=== PATIENT | male | born 1955 | race Caucasian/White ===

== ENCOUNTER 2025-01-01 10:36 | Outpatient (REF) | payer MEDICARE, MEDICAID, SELFPAY ==
--- OUTSIDE RECORDS SUMMARY | 2025-01-01 14:53 | XMS_ITS | Data Portability ---
Author Organization [facility], Main Office Address [address], [address] [place] [address] Care Team Providers Care [employer] Operator Name Role Phone [facility] OTHER HARLEY ALEXANDER Primary Care Provider Assessment No assessment recorded. Plan of Treatment Reminders Order Date Submit Date Provider Last Modified By Organization Details Last Modified Time Details Appointments None record ed. Lab None record ed. Referral None record ed. Procedures None record ed. Surgeries None record ed. Imaging None record ed. Medication Orders None record ed. Patient TargetsNo targets recorded. Patient InstructionsNo instructions recorded. Reason for Referral None Reported. Problems Name Problem SNOMED Code Status Onset Date Resolution Date Notes Provider Name and Address Organization Details Recorded Time Operative procedure on digestive system Active 2024 Not Available [facility] 5 10:08:03 Dysphagia 26914752 Active 2024 Not Available [facility] 5 10:08:04 Muscle weakness 43549223 Active 2024 Not Available [facility] 5 10:08:04 Unsteady when standing 133769487 Active 2024 Not Available [facility] 5 10:08:05 Difficulty walking 447904650 Active 2024 Not Available [facility] 5 10:08:05 Bile peritonitis 55995350 Active 2024 Not Available [facility] 5 10:08:05 Abdominal pain 21762861 Active 2024 Not Available [facility] 5 10:08:06 Clostridium difficile colitis 353379346 Active 2024 Not Available [facility] 5 10:08:06 Sepsis 77229263 Active 2024 Not Available [facility] 5 10:08:07 Ureteric stone 74345824 Active 2024 Not Available [facility] 5 10:08:07 Disorder of peritoneum 62822130 Active 2024 Not Available [facility] 5 10:08:07 Acute hypoxemic respiratory failure 335399484 Active 2024 Not Available [facility] 5 10:08:08 Acute kidney injury 88993864 Active 2024 Not Available [facility] 5 10:08:08 Pneumoperiton eum 30265299 Active 2024 NIKI HERRERA [address], [address], [place], [address] , [facility] 5 07:29:47 Hernia of anterior abdominal wall 703437536 Active 2024 NIKI HERRERA [address], [address], [place], [address] , [facility] 5 07:30:14 Perforation of intestine 62131120 Active 2024 NIKI HERRERA [address], [address], [place], [address] , [facility] 5 07:30:52 Clostridioide s difficile infection 361531288 Active 2024 NIKI HERRERA [address], [address], [place], [address] , [facility] 5 07:31:34 Bacteremia 1609574 Active [address], [place], [address] , [facility] 5 07:31:42 Venous thrombosis 370818143 Active 2024 NIKI HERRERA [address], [address], [place], [address] , [facility] 5 07:31:50 Deep venous thrombosis of lower extremity 846286280 Active 2024 NIKI HERRERA [address], [address], [place], [address] , [facility] 5 07:32:06 Small bowel obstruction 726479106 Active 2024 NIKI HERRERA [address], [address], [place], [address] , [facility] 5 07:32:42 Essential hypertension 55813303 Active 2024 NIKI HERRERA [address], [address], [place], [address] , [facility] 5 07:43:41 Constipation 33379065 Active 2024 NIKI HERRERA [address], [address], [place], [address] , [facility] 5 07:44:05 Problem Notes None recorded. Medical Equipment None Reported. Allergies No known drug allergies Medications Name Sig Start Date Stop Date Status Note LastModified by Organization Details LastModified Time Miralax 17 gram/dose oral powder Give 1 packet by mouth every 24 hours as needed for constipatio n 2024 active Not Available Not Available Not Avai lable acetaminophe n 325 mg tablet Give 2 tablet by mouth every 6 hours as needed for Mild Pain Do not exceed 3 grams in 24 hours.Total 650 mg AND Give 2 tablet by mouth every 6 hours as needed for Elevated Temperature > 101 Do not exceed 3 grams in 24 hours.Total 650mg 2024 active Not Available Not Available Not Avai lable vancomycin 125 mg capsule Give 1 capsule by mouth every 6 hours for c-diff discontinue order when vancomycin oral suspension arrives from pharmacy. 2024 active Not Available Not Available Not Avai lable DSS 100 mg capsule Give 1 tablet by mouth every 12 hours as needed for constipatio n 2024 active Not Available Not Available Not Avai lable lisinopril 10 mg tablet Give 1 tablet by mouth one time a day for HTN 2024 active Not Available Not Available Not Avai lable Laxative (sennosides) 8.6 mg tablet Give 1 tablet by mouth every 24 hours as needed for Constipatio n 2024 active Not Available Not Available Not Avai lable sodium phosphates 19 gram-7 gram/197 mL enema Insert 1 unit rectally every 24 hours as needed for Constipatio n Use only if Bisacodyl Suppository is ineffective 2024 active Not Available Not Available Not Avai lable Midol (naproxen) 220 mg tablet Give 1 tablet by mouth every 12 hours for Pain Take with food. Administer with full glass of water. 2024 active Not Available Not Available Not Avai lable Ibupak 600 mg oral kit Give 1 tablet by mouth three times a day for pain 2024 active Not Available Not Available Not Avai lable OneLAX Bisacodyl 10 mg rectal suppository Insert 1 suppository rectally every 24 hours as needed for constipatio n Use if Senna is Ineffective 2024 active Not Available Not Available Not Avai lable Vitals Date Recorded Body temperature Heart rate Respiratory rate Body weight Systolic And Diastolic Provider Name and Address Organization Details Last Updated DateTime 5 97.3 [degF] 95 /min 14 /min 32901.3 7 g 143/83 mm[Hg] Ortega Delatorre MD [address], [place], [address], [facility] 5 10:43:20 Date Recorded Systolic And Diastolic Provider Name and Address Organization Details Last Updated DateTime 03/23/2024 130/68 mm[Hg] Ortega Delatorre MD [address] , [address], [place], [address], [facility] 03/23/2024 11:34:03 Date Recorded Heart rate Systolic And Diastolic Provider Name and Address Organization Details Last Updated DateTime 03/28/2024 88 /min 114/68 mm[Hg] TAVARES GIL [address] , [address], [place], [address], [facility] 03/28/2024 20:16:33 Social History Question Answer Notes LastModified by Organizat ion Details LastModified Time Tobacco Smoking Status Unknown If Ever Smoked Ortega Delatorre MD [address], [address], [place], [address], [facility] [employer] 03/19/2024 11:04:34 Do You Have An Advance Directive? [email or web address] Information not available 03/19/2024 What Is Your Code Status? Full Code [email or web address] Information not available 03/19/2024 Sex: Unknown Functional Status None recorded. Mental Status None recorded. Family History Nothing Reported Notes:N/C Medical History No medical history recorded. Past Encounters Encounter ID Performer Location Encounter Start Date Encounter Closed Date Diagnosis/Indication Diagnosis SNOMED-CT Code Diagnosis ICD10 Code Diagnosis IMO Codes Diagnosis Note [id number] JIA DAVALOS NP-C [facility] [address] [place] [address] 03/17/2024 07:19:47 03/19/2024 16:20:35 Hernia of anterior abdominal wall 631924763 K43.9 underwent ex-lap, NEW, reduction of ventral hernias, primary repair of D1 perforatio n with omental buttress, and EMILY drain placement (now removed)mo nitor and see above plansurgic al f/up Pneumoperitoneum 4399563 6 K66.8 w/ free air in abdunderwe nt ex-lap, NEW, reduction of ventral hernias, primary repair of D1 perforatio n with omental buttress, and EMILY drain placement (now removed)mo nitor painon tylenol, ibuprofen and naproxen for pain controlmon itor bowelsmoni tor surgical sitesuture s can be removed in 1 weekdysaph ia 3 diet with thin liquids = monitor tolerance to po intake PT OT eval and treat = pt should avoid strainingc bc on admit and weeklyf/up with trauma surgery at [facility] on 03/29 at 1100 Perforatio n of intestine 64865305 K63.1 bowel leak after surgeryreq uiring second surgery and NG/NJ tube (now removed)mo nitor cbc and ss of infections urgical f/up Bacteremia 4568040 R78.8 1 dt perforatio ncompleted rocephen and flagylmoni tor cbc and ss of infection Clostridio ides difficile infection 984938552 A04.72 dc summary note states pt completed all antbxdc med list with po vanco listed and no end datecontin ue vanco po 125 mg q6h for now, will look into end datemonito r for loose stools Deep venou s thrombosis of lower extremity 372189589 I82.409 hep gtt, now on lovenoxmon itor bleeding Venous thrombosis 700752 003 I82.90 hep gtt, now on lovenoxmon itor bleeding Small sahara l obstruction 833944172 K56.609 monitor bowel function Constipation 04762057 K5 9.00 at risk dt multiple bowel surgeriesm onitor bowel functionco ntinue bowel regimenadd miralax daily Essential hypertension 18316105 I10 carrying dxlisinopr il 10 mg dailymonit or bp and labs [id number] Ortega Delatorre MD [facility] [address] [place] [address] 03/19/2024 10:42:39 03/21/2024 08:27:28 Pneumoperitoneum 41141233 K66.8 see HPIcomplic ated hospitaliz ation with recurrent repeat surgical interventi onsfollow recs and update surgery with concernsmo nitor need to repeat imaging Hernia of anterior abdominal wall 525776459 K43.9 see HPI and abovenow s/p repeat repairmoni tor site Perforatio n of intestine 72832107 K63.1 see HPI with repeat surgical interventi onsmonitor vital and repeat cbcupdate surgery with concerns Bacteremia 3461158 R78.8 1 Sepsis covered with rocephin and flagyl, then developed c diff colitis started on vanco PO now completed per notehoweve r - Vanco PO in d/c med list, continued at this timefollow cbc Clostridio ides difficile infection 664030390 A04.72 discharged on PO vancoconti nued at this timereques t info for stop date Deep venou s thrombosis of lower extremity 702499857 I82.409 hep gtt, now on lovenoxmon itor bleeding Venous thrombosis 055319 003 I82.491 UL positive for LLE peroneal vein and RUE subclavian /axillary DVT covered with lovenox Constipation 48201300 K5 9.09 bowel protocolmo nitor for effect and need to titrate Essential hypertension 05534014 I10 lisinopril 10 mg qdmonitor bp and need to titrate [id number] [place] [address] 03/23/2024 11:33:18 03/26/2024 15:16:39 Acute retention of urine 491587631 R33.8 voiding trial at facility 03/26 in [facility] protocoldi scussed with nursing Pneumoperitoneum 3148720 6 K66.8 see HPIcomplic ated hospitaliz ation with recurrent repeat surgical interventi onsupdated surgery on concern for infection at incision sitefollow recs Clostridio ides difficile infection 423299495 A04.72 discharged on PO vancoconti nued on arrivalreq uest ID note for stop datewill empiricall y stop next week if remains symptomati c [id number] JIA DAVALOS, [place] [address] 03/27/2024 14:34:38 03/28/2024 15:48:38 Clostridioides difficile infection 153896051 A04.72 continue vancowait for ID recs for stop datechange all bowel meds to prn instead of scheduled Constipation 74675738 K5 9.09 at risk dt multiple bowel surgeriesm onitor bowel functionno w with diarrheawi ll change all bowel meds to prn Retention of urine 36976 4002 R33.9 started voiding trial on mondoing wellcontin ue to bladder scan per nursing protocol [id number] [place] [address] 03/28/2024 13:54:31 03/29/2024 15:16:54 Surgical incision wound of skin 6540786261 00 R23.8 s/p EMILY drains pt states that scabb fell off today and the site started oozing.new order to cleanse with NS and apply zinc if available around incision site to protect skin from maceration . cover incision with pressure dressing q shift and prnpatient has a f/u with surgery on 03/29/24ntaylor sing to update provider with worsening changes Health Concerns Section Related Observation LastModified by Organization Detai ls LastModified Time None Recorded Concern Status LastModified by Organization Details LastModified Time None Recorded Advance Directives Directive N: Payers Insurance Date Sequence Insurance Name Policy Number Policy Myles Covered Member ID Myles Member ID Guarantor Name 03/19/2024 1 MEDICARE [place]: [employer] Elliot Coombs [id number] Elliot Coombs 03/19/2024 1 *SELF PAY* Jarrett Coombs Notes Date Note Type Note Provider Name and Address Organization Details Recorded Time 03/17/2024 text/html Pt is a 68 yo male being seen for initial intake visit. Pt had a very long and complicated hospital course from 01/25/24-03/16/24 at [facility]. He had multiple trips to the OR and an ICU stay. Initially presented for abd pain and was found to have pneumoperitoneum thus pt underwent ex-lap, NEW, reduction of ventral hernias, primary repair of D1 perforation with omental buttress, and EMILY drain placement. Post op complicated by a leak and he underwent surgery again for perforation and placement of NG/NJ tube. He was bacteremic requiring CTX/Flagyl, C diff requiring PO vancomycin, now off all antibiotics as of 03/09. Admission further complicated by a LLE thrombus and a DESMOND DVT, transitioned from a hep gtt to therapeutic lovenox. Patient seen today. He is laying in bed. He denies any pain and says he has been pain free. He reports last BM was yesterday but this morning he was on bed avilez and struggling to have a BM. He is passing gas. Nursing made aware to give bowel reg and monitor. He reports living at home with 3 other brothers. At baseline he was walking independently and is now using a cane. PMH laparotomy with L inguinal hernia repair (2007) with subsequent SBO 2/2 incarcerated incisional hernia s/p laparotomy, SBR with primary anastomosis, and primary incisional hernia repair (2015) c/b recurrence of large ventral hernia. JIA DAVALOS NP-C [address], [address], [place], [address], [facility] [employer] 03/17/2024 08:00:08 03/19/2024 text/html Patient is a 68 yo male with hx of inguinal hernia, incarcerated hernia and recurrence of large ventral hernia, Admit from hospital presenting after abd pain. Imaging positive for pneumoperitoneum. Eval by surgery and underwent exploratory lap with hernia reduction and repair of perforation. Post op vital unstable taken back to OR with concern for leak then underwent redo of primary repair. Developed sepsis and need for further intervention with abd washout and stump oversew of site. Sepsis covered with rocephin and flagyl, then developed c diff colitis started on vanco PO now completed. UL positive for LLE peroneal vein and RUE subclavian/axillary DVT covered with lovenox. For dysphagia discharged to facility on dysphagia diet with thin liquids Ortega Delatorre MD [address], [address], [place], [address], [facility] 03/19/2024 11:06:38 03/23/2024 text/html Patient is a 68 yo male resident seen for acute rounding. Patient initially admit from hospital presenting after abd pain. Imaging positive for pneumoperitoneum. Eval by surgery and underwent exploratory lap with hernia reduction and repair of perforation. Post op vital unstable taken back to OR with concern for leak then underwent redo of primary repair. Developed sepsis and need for further intervention with abd washout and stump oversew of site. Sepsis covered with rocephin and flagyl, then developed c diff colitis started on vanco PO. Patient had abad placed in hospital will undergo voiding trial at facility on tuesday am. Concern for change at site of incision with imaging sent to surgery for review Ortega Delatorre MD [address], [address], [place], [address], [facility] 03/23/2024 11:38:06 03/27/2024 text/html Patient is a 68 yo male resident seen for acute rounding. Sp exploratory lap with hernia reduction and repair of perforation. Sent back to OR for another leak with repair. Being treated for sepsis with IV antbx, then developed c dif and placed on po vanco. He had a abad placed for retention. Following up on patient today who started a voiding trial on tuesday and is doing well with no urinary retention seen on bladder scan. Diarrhea has restarted but he was placed back on bowel regimen for constipation and feels this is the cause. He is still being treated for c dif with po vanco from the [facility]. The plan was to stop vanco this week if dirrhea has resolved as there was no end date listed on dc summary. Pt reports diarrhea and constipation is his baseline. JIA DAVALOS NP-Anish [address], [address], [place], [address], [facility] 03/28/2024 09:47:28 03/28/2024 text/html ROS as noted in the HPI Elliot is a 68 yr old male patient seen today for acute rounding visit per nursing requested. Nursing reported that patient had a new open area on his abdomen showing sign of infection with green thick pus. Patient is seen OOB sitting in wheelchair. There is a 2 small open incision on right mid upper and lower abdomen with bile colored fluid oozing out. there is no s/sx of infection noted, patient denies any tenderness or pain. TAVARES GIL [address], [address], [place], [address], [facility] 03/28/2024 20:16:36
[2025-01-01 18:01] LABS: MANUAL DIFF FLAG NO
[2025-01-01 18:44] LABS: Alanine Aminotransferase 28 U/L (0-40); Albumin Level 4.5 g/dL (3.5-5.0); Alkaline Phosphatase 97 U/L (39-117); Anion Gap 14 (12-20); Aspartate Amino Transferase 27 U/L (5-37); Blood Urea Nitrogen 30 mg/dL (9-16); Calcium 9.3 mg/dL (8.4-10.2); Carbon Dioxide 26 mmol/L (22-29); Chloride 104 mmol/L (96-108); Cholesterol 191 mg/dL (<200); Estimated Glomerular Filt Rate > 60; HDL Cholesterol 47 mg/dL (>40); Magnesium 2.3 mg/dL (1.6-2.6); Potassium 4.3 mmol/L (3.3-5.1); Sodium 140 mmol/L (135-145); Total Protein 7.6 g/dL (6.5-8.0); Triglycerides 216 mg/dL (<150)
[2025-01-01 19:00] LABS: Hematocrit 45.8 % (42.0-52.0); Hemoglobin 14.9 g/dl (14.0-18.0); Imm Gran Abs Auto 0.02 X10*3/uL (0.00-0.03); Imm Gran Pct Auto 0.2 % (0.0-0.4); Lymphocytes Absolute Auto 1.8 X10*3/uL (1.2-4.9); Mean Corpuscular HGB Conc 32.5 g/dl (31.0-36.0); Mean Corpuscular Hemoglobin 31.0 pg (27.0-33.0); Mean Corpuscular Volume 95.2 fL (80.0-98.0); NRBC Abs Auto 0.000 X10*3/uL (0.0-0.012); NRBC Pct Auto 0.0 /100WBC (0.0-0.2); Platelet Count 268 X10*3/uL (160-400); Red Blood Count 4.81 X10*6/uL (4.60-5.80); White Blood Count 9.0 X10*3/uL (4.8-10.8)
[2025-01-01 19:13] LABS: Folate > 20.0 ng/mL (> or = 4.0); Vitamin B12 871 pg/mL (200-900)
[2025-01-01 19:58] LABS: Appearance Urine Clear; Glucose Urine UA Negative (Negative); PH 5.5 (5.0-9.0); Specific Gravity - Urine 1.010 (1.005-1.025); UMIC TRIGGER UACC YES
[2025-01-01 20:03] LABS: UACC Culture Trigger YES
[2025-01-02 07:04] LABS: Total Hemoglobin (HGBA1C) 3852.7107 umol/L
[2025-01-02 08:28] LABS: HBS Num1 1.61 mIU/mL (0-7.99); HBsAGNum1 0.38 S/CO (0.00-0.99); HIV Num 1 0.05 S/CO (0.00-0.99); Hepatitis B Surface Antigen Negative (Negative); ~HepC Num1 0.10 S/CO (0.00-0.79); ~Hepatitis B Surface Antibody NONREACTIVE (Nonreactive); ~Hepatitis C Antibody Nonreactive (Nonreactive)
[2025-01-04 13:58] LABS: VITAMIN D (1,25 OH) D3 39 pg/mL; Vit D (1,25-Dihydroxy) Total 39 pg/mL (18-72); Vitamin D (1,25 OH) D2 <8 pg/mL
== END 2025-01-01 10:37 | disposition home or self-care (01) ==
LOC: HO.HKASLDS 10:36
PROVIDERS: PCP Student in an Organized Health Care Education/Training Program; Visit Provider Student in an Organized Health Care Education/Training Program
DX: Z13.9 Encounter for screening, unspecified (principal); Z28.82 Immunization not carried out because of caregiver refusal; I82.401 Acute embolism and thrombosis of unspecified deep veins of right lower extremity; R60.0 Localized edema; N40.0 Benign prostatic hyperplasia without lower urinary tract symptoms; Z98.890 Other specified postprocedural states; Z79.01 Long term (current) use of anticoagulants; Z79.899 Other long term (current) drug therapy; Z87.442 Personal history of urinary calculi; Z87.19 Personal history of other diseases of the digestive system; Z87.11 Personal history of peptic ulcer disease; Z86.2 Personal history of diseases of the blood and blood-forming organs and certain disorders involving the immune mechanism
CPT/HCPCS: 36415; 80053; 80061; 81001; 81003; 82607; 82652; 82746; 83036; 83735; 84443; 85025; 86706; 86803; 87086; 87088; 87186; 87340; 87389; 90471; 96127; 99202

== ENCOUNTER 2025-01-01 10:36 | Outpatient (AMB) | payer MEDICARE, MEDICAID, SELFPAY ==
--- OUTSIDE RECORDS SUMMARY | 2024-03-20 03:00 | XMS_ITS ---
Author Organization [facility] Address [address] [place] [address] Care Team Providers Care Gunner'S Mate Name Role Phone Ortega Delatorre MD Primary Care Provider Yoselin Velez Unavailable [phone] Allergies No Known Allergies REASON FOR VISIT POA - str Medications Medication SIG (Take, Route, Frequency, Duration) Notes Start Date End Date Status MiraLax 17 GM/SCOOP 1 scoop mixed with 8 ounces of fluid Orally Once a day 03/18/2024 Active Metamucil 4 in 1 Fiber 25 % as directed Orally 01/2025 Active Vancomycin HCl 125 MG 1 capsule Orally e very 6 hrs 03/18/2024 Active Senna 8.6 MG 1 tablet Orally Once a day As needed 03/16/2024 Active Naproxen Sodium 220 MG 1 tablet Orally every 12 hrs take with food and full glass of water 03/16/2024 Active Lisinopril 10 MG 1 tablet Orally Once a day 03/17/2024 Active Ibuprofen 600 MG 1 tablet Orally 3 ti mes a day 03/16/2024 Active Enema 7-19 GM/118ML as directed Rectal 03/16/2024 Active Docusate Sodium 100 MG 1 capsule Orally twice a day 03/16/2024 Active Bisacodyl 10 MG 1 suppository Rectal Once a day As needed 03/16/2024 Active Acetaminophen 325 MG 2 tablets Orally every 6 hrs As needed for fever 03/16/2024 Active Acetaminophen 325 MG 2 tablets Orally every 6 hrs As needed for pain 03/16/2024 Active Encounters Encounter Location Date Provider Diagnosis [facility] [address] [place] [address] 03/20/2024 Yoselin Abraham Plan Of Treatment No Information Progress Notes * Elliot CIDDOB:1955 ( 69 yo M)Acc No.[id number]:03/20/2024 Care Home New Patient Patient: Elliot SAMSON Provider: Delgado Abraham NP :1955 A ge:68 Y S ex:Male Date:03/20/2024 [place] [address] [place] Pcp:Ortega Delatorre MD Subjective: * Chief Complaints: * 1 . POA - str. * Medical History: A cute kidney failure, unspecified, Acute respiratory failure with hypoxia, Calculus of ureter, Choleperitonitis, Encounter for surgical aftercare following surgery on the digestive system, Enterocolitis due to Clostridium difficile, not specified as recurrent, Other specified disorders of peritoneum, Sepsis, unspecified organism, Unspecified abdominal pain. * Medications: T aking Acetaminophen 325 MG Tablet 2 tablets Orally every 6 hrs As needed for pain, Taking Acetaminophen 325 MG Tablet 2 tablets Orally every 6 hrs As needed for fever, Taking Bisacodyl 10 MG Suppository 1 suppository Rectal Once a day As needed, Taking Docusate Sodium 100 MG Capsule 1 capsule Orally twice a day , Taking Enema 7-19 GM/118ML Enema as directed Rectal , Taking Ibuprofen 600 MG Tablet 1 tablet Orally 3 times a day , Taking Lisinopril 10 MG Tablet 1 tablet Orally Once a day , Taking Metamucil 4 in 1 Fiber 25 % Packet as directed Orally , Taking MiraLax 17 GM/SCOOP Powder 1 scoop mixed with 8 ounces of fluid Orally Once a day , Taking Naproxen Sodium 220 MG Tablet 1 tablet Orally every 12 hrs take with food and full glass of water, Taking Senna 8.6 MG Tablet 1 tablet Orally Once a day As needed, Taking Vancomycin HCl 125 MG Capsule 1 capsule Orally every 6 hrs , Medication List reviewed and reconciled with the patient * Allergies: N .K.D.A. Objective: * Vitals: Assessment: Plan: * Treatment: * Billing Information: * Visit Code: * Procedure Codes: * Electronic signature of Janet Abraham NP on 01/01/2025 at 01:23 PM EDT Sign off status: Pending * Provider: Delgado Abraham NP Date: 0 03/20/2024 Generated for Shelby tuttle/Gloria/Sg on: 1 01:23 PM EDT
--- OUTSIDE RECORDS SUMMARY | 2024-04-18 10:00 | XMS_ITS ---
Author Organization [facility] Address [address] [place] [address] Care Team Providers Care Contract Administrative Assistant Name Role Phone Juan Ramon DUMONT, Ortega Primary Care Provider Yoselin Velez Unavailable [phone] Allergies No Known Allergies REASON FOR VISIT correction new patient wound care Medications Medication SIG (Take, Route, Frequency, Duration) Notes Start Date End Date Status Pantoprazole Sodium 40 MG 1 tablet Orall y twice a day 04/05/2024 Active Magnesium Hydroxide 400 MG/5ML 30 mL Orally Once a day As needed 04/05/2024 Active Normal Saline Flush 0.9 % 10 mL Intraven ous 3 times a day 04/05/2024 Active Enoxaparin Sodium 80 MG/0.8ML 80 mg Injection twice a day 04/10/2024 Active Ertapenem Sodium 1 GM 1 gm Injection onc e a day 04/06/2024 04/19/2024 Active Bisacodyl 10 MG 1 suppository Rectal Once a day As needed 04/05/2024 Active Docusate Sodium 100 MG 1 capsule Orally twice a day 04/05/2024 Active Enema 7-19 GM/118ML as directed Rectal As needed 04/05/2024 Active Encounters Encounter Location Date Provider Diagnosis [address] [place] [address] 04/18/2024 Yoselin Abraham Pressure injury of deep tissue of sacral region L89.156 and Unspecified protein-calorie malnutrition E46 Assessments Encounter Date Diagnosis (ICD Code) Assessment Notes Treatment Notes Treatment Clinical Notes Section Notes 04/18/2024 Pressure injury of deep tissue of sacral region (ICD-10 - L89.156) On exam, alert & cooperative with care. We examined his coccyx which has a small area of nonblanchable erythema. There were no findings to indicate any acute underlying infectious processes. I cleaned the wound with wound cleanser and applied triad paste I recommended nursing continue to apply triad paste QS & PRN to his coccyx extending to bilateral buttocks. Turn, reposition & offload Q2 hours & PRN to aid in wound healing. Encourage appropriate dietary supplementation to aid in wound healing. Falls protocol in place. I will follow up in about one week to monitor his progress and nursing will reach out in the interim w any questions or concerns. Patient and nursing agree w plan of care. I Yoselin Abraham MSN, AGPCNP-BC examined, evaluated and treated the patient. Dr. Aydee Gomez was available for any question or concerns that I may have had. 04/18/2024 Unspecified protein-calorie malnutrition (ICD-10 - E46) Plan Of Treatment Treatment Notes Assessment Notes Pressure injury of deep tiss ue of sacral region On exam, alert & cooperative with care. We examined his coccyx which has a small area of nonblanchable erythema. There were no findings to indicate any acute underlying infectious processes. I cleaned the wound with wound cleanser and applied triad paste I recommended nursing continue to apply triad paste QS & PRN to his coccyx extending to bilateral buttocks. Turn, reposition & offload Q2 hours & PRN to aid in wound healing. Encourage appropriate dietary supplementation to aid in wound healing. Falls protocol in place. I will follow up in about one week to monitor his progress and nursing will reach out in the interim w any questions or concerns. Patient and nursing agree w plan of care. I Yoselin Abraham MSN, AGPCNP-BC examined, evaluated and treated the patient. Dr. Aydee Gomez was available for any question or concerns that I may have had. Next Appt Details Follow Up: 1 week, Reason: Progress Notes * Andres CID:1955 ( 69 yo M)Acc No.[id number]:04/18/2024 Alf Follow-Up Visit Patient: Elliot SAMSON Provider: Delgado Abraham NP :1955 A ge:68 Y S ex:Male Date:04/18/2024 Address:[facility] [address] [place], [id number] Pcp:Ortega Delatorre MD Subjective: * Chief Complaints: * 1 . care home new patient wound care. * HPI: W ound Care: Elliot is a 68yo M who presented to [facility] for STR. I am asked to see him to evaluate the wound to his sacrum present on admission to the correction. Nursing has been applying triad paste QS for protection and he denies pain to his coccyx or buttocks. PMHx as noted below. * ROS: G eneral / Constitutional: Patient denies F ever, chills, fatigue. E NT: Patient denies H earing loss. R espiratory: Patient denies C ough. C ardiovascular: Patient denies C hest pain. G astrointestinal: Patient denies N /V/C/D. M usculoskeletal: Patient complains of W eakness. S kin: Patient complains of + ulcerations. N eurologic: Patient denies M leonel loss. P sychiatric: Patient denies A nxiety. * Medical History: A cute kidney failure, unspecified, Cutaneous abscess of abdominal wall, Difficulty in walking, not elsewhere classified, Dysphagia, oral phase, Essential (primary) hypertension, Muscle weakness (generalized), Other bacterial infections of unspecified site, Other Gram-negative sepsis, Unspecified protein-calorie malnutrition, Urinary tract infection, site not specified, Weakness. * Medications: T aking Bisacodyl 10 MG Suppository 1 suppository Rectal Once a day As needed, Taking Docusate Sodium 100 MG Capsule 1 capsule Orally twice a day , Taking Enema 7-19 GM/118ML Enema as directed Rectal As needed, Taking Enoxaparin Sodium 80 MG/0.8ML Solution Prefilled Syringe 80 mg Injection twice a day , Taking Ertapenem Sodium 1 GM Solution Reconstituted 1 gm Injection once a day , stop date 04/19/2024, Taking Magnesium Hydroxide 400 MG/5ML Suspension 30 mL Orally Once a day As needed, Taking Normal Saline Flush 0.9 % Solution 10 mL Intravenous 3 times a day , Taking Pantoprazole Sodium 40 MG Tablet Delayed Release 1 tablet Orally twice a day , Medication List reviewed and reconciled with the patient * Allergies: N .K.D.A. Objective: * Vitals: * Examination: W ound Assessment: Wound Number: 1 . Wound Encounter: I nitial. Wound Location: S acrum. Wound Type: D eep Tissue Injury (DTI). Wound Pre-Measurement: 1 x 0.5 x 0. Wound Tunneling/Undermining: N o. Wound Status: I nitial. Wound Thickness: F ull. Wound Exudate Amount: N one. Wound Odor: N one. Wound Margin: F lat and Intact. Wound Base: 1 00% Epi IP. Wound - Periwound: I ntact without warmth erythema or edema. Pain Level: 0 /10. G eneral Examination: General appearance: A ppears neat and clean, in NAD. Head: N ormocephalic, atraumatic. Ears: N o apparent hearing loss. Skin: S ee detailed wound assessment. Lungs: N o supplemental 02. Musculoskeletal: P t uses a RW. Neurologic: A +O. Psych: A ppropriate affect. Assessment: * Assessment: 1. P ressure injury of deep tissue of sacral region - L89.156 (Primary) 2 .?Unspecified protein-calorie malnutrition - E46 Plan: * Treatment: * Follow Up: 1 week * Billing Information: * Visit Code: * Procedure Codes: * Electronic signature of Janet Abraham NP on 01/01/2025 at 01:22 PM EDT Sign off status: Pending * Provider: Delgado Abraham NP Date: 0 04/18/2024 Generated for Shelby tuttle/Gloria/eTtiagoitting on: 1 01:22 PM EDT History and Physical Notes * Examination Category Sub-Category Detail Notes Category Not es General Examination General appearance: Appears neat a nd clean, in NAD Head: Normocephalic, atrau matic Ears: No apparent hearing loss Lungs: No supplemental 02 Neurologic: A+O Skin: See detailed wound a ssessment Musculoskeletal: Pt uses a RW Psych: Appropriate affect Wound Assessment Wound Number: 1 Wound Encounter: Initial Wound Location: Sacrum Wound Type: Deep Tissue Injury ( DTI) Wound Pre-Measurement: 1 x 0.5 x 0 Wound Tunneling/Undermining: No Wound Status: Initial Wound Thickness: Full Wound Exudate Amount: None Wound Odor: None Wound Margin: Flat and Intact Wound Base: 100% Epi IP Wound - Periwound: Intact without warmt h erythema or edema Pain Level: 0/10
--- NOTE | 2025-01-01 10:49 | MHC.PC.OV ---
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 Accompanied by: Brother Allergies No Known Allergies Allergy (Verified 01/01/25 10:49) Medication List - Last Reconciled 01/01/25 by Fernando Louie MD apixaban (Eliquis) 5 mg PO BID ferrous sulfate 325 mg PO DAILY furosemide 20 mg PO DAILY pantoprazole 40 mg PO DAILY tamsulosin 0.4 mg PO DAILY Tobacco use date assessed: 01/01/25 Fall risk assessment: No Falls in past year Last assessed Fall Risk: 01/01/25 Dental Screening Dental Screen Date: 01/01/25 Did you have a dental visit in the last 12 months?: No Was dental information given to patient?: Patient has dentist HPI HPI Comments History of Present Illness Details History of Present Illness The patient is a 69-year-old male presenting to [facility] primary care for prescription refills. History of GI bleed, esophageal tear, and hernia repair: The patient has a history of a bleeding ulcer and acid reflux, which he attributes to taking Aleve twice a day for years for shoulder pain. This led to an esophageal tear requiring three surgeries: an emergency repair of the esophageal tear, a more extensive stomach surgery 36 hours later, and a hernia repair a week after that. He was hospitalized at [facility] for three months, followed by multiple stays in rehabilitation facilities, which were complicated by readmissions for dehydration and hypotension with blood pressure crashing to 90/60 mmHg. Deep Vein Thrombosis: The patient was diagnosed with blood clots in his right leg in May during his first stay at a rehab facility. The condition was noticed when his leg became swollen while he was sedentary. He was subsequently sent to the hospital for management. He takes apixaban (Eliquis) for this condition. He continues to have swelling in his lower extremities, which is worse on the right, and he elevates his feet with pillows while sleeping. History of kidney stones and BPH: The patient has a history of kidney stones, for which he had a stent placed on the right side. Following the stent removal, he developed a urinary tract infection and was hospitalized at [facility] for a week. He takes tamsulosin for benign prostatic hyperplasia to help with urination. He saw a urologist in August and was advised to follow up in November but did not. Anemia: The patient has a history of anemia, presumed to be due to the gastrointestinal bleed. He takes iron supplements. Surgical History: - Emergency surgery for esophageal tear - Stomach surgery for bleeding ulcer - Partial hernia repair - Right ureteral stent placement for kidney stones Medications: - Apixaban (Eliquis): For history of blood clots. - Pantoprazole: For history of ulcer. - Tamsulosin: For benign prostatic hyperplasia. - Ferrous sulfate (iron): For history of anemia. - Furosemide 20 mg: For edema of the lower extremities. - Stool softener (docusate) - Vitamin B12 - Multivitamins - Ascorbic acid Social History: - Substance Use: The patient denies any history of alcohol use. - Functional Status: The patient has no trouble with walking but uses a walker for longer distances. - Support Systems: He receives weekly visits from a visiting nurse and a physical therapist. - Diet: The patient eats solid foods and is not on any special diet. Family History: - No family history was discussed during the visit. Past Medical History - Bleeding ulcer and acid reflux secondary to chronic NSAID use. - Esophageal tear and partial hernia, status post-repair. - Prolonged hospitalization (3 months) at [facility] for GI surgeries. - Recurrent hospitalizations for dehydration and hypotension. - Deep Vein Thrombosis (DVT) of the right leg, diagnosed in May. - Urinary tract infection post-stent removal, requiring hospitalization at [facility]. - Kidney stones with history of right ureteral stent. - Anemia, secondary to GI bleed. - Benign prostatic hyperplasia (BPH). - Peripheral edema. Health Maintenance - The patient is 69 years old and has never had a colonoscopy. - A Cologuard test has been ordered for non-invasive colon cancer screening. - The patient receives home health services, including a weekly visit from a nurse and a physical therapist. [facility] Medical History (Updated 01/01/25 @ 11:27 by Fernando Louie MD) DVT (deep venous thrombosis) History of kidney stones Surgical History (Updated 01/01/25 @ 11:24 by Fernando Louie MD) History of removal of ureteral stent Family History (Updated 01/01/25 @ 10:59 by Laura Corona CMA) Mother Diabetes Parkinson disease Father Heart attack Social History Housing: Apartment Patient Tobacco Use Status: Never used Tobacco service: No Current occupational status: retired Cognitive needs: Yes (walker) Hearing needs: No Vision needs: Yes (rx glasses) Questionnaire PHQ-9 Over the last 2 weeks, how often have you been bothered by any of the following problems? 1. Little interest or pleasure in doing things: not at all 2. Feeling down, depressed, or hopeless: not at all 3. Trouble falling or staying asleep, or sleeping too much: not at all 4. Feeling tired or having little energy: not at all 5. Poor appetite or overeating: not at all 6. Feeling bad about yourself - or that you are a failure or have let yourself or your family down: not at all 7. Trouble concentrating on things, such as reading the newspaper or watching television: not at all 8. Moving or speaking so slowly that other people could have noticed. Or the opposite - being so fidgety or restless that you have been moving around a lot more than usual: not at all 9. Thoughts that you would be better off or of hurting yourself in some way: not at all Total score: 0 Depression Screening Interpretation: Negative Depression Screening Done: Yes Source: Developed by Drs. Jsoe Bhatti, Kim De Paz, Solomon Arboleda and colleagues, with an educational richard from [employer]. Thrive Questionnaire Date Thrive assessed: 01/01/25 I am a: Patient What is your living situation today?: I choose not to answer this question Within the past 12 months, did the food you bought not last and you didn't have the money to get more?: I choose not to answer this question Within the past 12 months, did you worry whether your food would run out before you got money to buy more?: I choose not to answer this question Do you have trouble paying for medicines?: I choose not to answer this question Do you have trouble getting transportation to medical appointments?: I choose not to answer this question Do you have trouble paying your heating and electricity bill?: I choose not to answer this question Do you have trouble taking care of your child, family member or friend?: I choose not to answer this question Are you currently unemployed and looking for a job?: I choose not to answer this question Are you interested in more education?: I choose not to answer this question Please select the resources that you would like help with: None Currently or been in a relationship where the following occur: I choose not to answer THRIVE Score: 0 AUDIT C Alcohol Use Questionnaire (AUDIT-C) 1. How often do you have a drink containing alcohol?: Never Total Score: 0 ANGELIC-7 AMB Questionnaire ANGELIC-7 Date ANGELIC - 7 assessed: 01/01/25 Feeling nervous, anxious, or on edge: 0 = Not at all Not being able to stop or control worryin = Not at all Worrying too much about different things: 0 = Not at all Source: Developed by Drs. Jose Bhatti, Kim De Paz, Solomon Arboleda and colleagues, with an educational richard from [employer]. Review of Systems Narrative Review of Systems - Constitutional: Denies waking up gasping for air. - GI: Reports history of acid reflux. - : Reports nocturia, waking approximately three times per night to urinate. - Cardiovascular: Denies any history of heart issues. - Respiratory: Denies snoring. - Musculoskeletal: Reports a past history of shoulder pain. 10-point ROS reviewed and negative except as noted in HPI Physical exam (Primary Care) Vital Signs: Last Vital Signs Temp 98.1 F 01/01/25 10:53 Pulse 76 01/01/25 10:53 BP 146/70 H 01/01/25 10:53 Pulse Ox 96 01/01/25 10:53 Oxygen Delivery Method Room Air 01/01/25 10:53 BMI result Body Mass Index 27.9 Tobacco/Smoking Status: Tobacco use Status Tobacco use date assessed 01/01/25 01/01/25 10:52 Patient Tobacco Use Status Never used Tobacco 01/01/25 10:59 PHQ-9: PHQ-9 Score PHQ-9: Total score 0 01/01/25 10:52 Depression Screening Interpretation: Negative Thrive Assessment: Date of Thrive Assessment Date Thrive assessed 01/01/25 01/01/25 10:52 Currently or been in a relationship where the following occur: I choose not to answer Narrative Physical Exam General: Well-appearing, in no acute distress. Vital signs: Blood pressure noted to have been low at 90/60 during a previous hospital visit. HEENT: Normocephalic, atraumatic. PERRLA, EOMI. Conjunctiva clear, sclera anicteric. Oropharynx clear, mucous membranes moist. TMs intact bilaterally. Neck: Supple, no lymphadenopathy, no thyromegaly, no JVD or carotid bruits. Cardiovascular: RRR, normal S1/S2, no murmurs, rubs, or gallops. Peripheral pulses 2+ and symmetric. Edema noted in the lower extremities, more on the right than the left. Respiratory: Lungs clear to auscultation bilaterally, no wheezes, rales, or rhonchi. Normal effort. Abdomen: Soft, non-tender, non-distended. Normoactive bowel sounds. No hepatosplenomegaly, no masses. Post-surgical scar noted. MSK: Full range of motion, no joint swelling or deformity. Normal gait. Uses a walker for longer distances. Skin: Warm, dry, intact. No rashes, lesions, or pallor. Neuro: Alert and oriented x3. Cranial nerves II-XII intact. Strength 5/5 throughout. Sensation intact. Reflexes 2+ symmetric. Normal coordination and gait. Psych: Appropriate mood and affect. Normal judgment and insight. Office Procedures Flu Questionnaire Does the patient have a severe egg allergy?: No Does the patient have severe life threatening allergies?: No Does the patient have a fever or illness today?: No Has the patient ever had Guillain-Madison Syndrome?: No Has the patient ever had any past reaction to a flu shot?: No Immunizations Fluarix [id number] (PF) 45 mcg (15 mcg x 3)/0.5 mL IM syringe Performing Provider: Fernando Louie MD Performing Location: [facility] Documented (not given) by: Laura Corona CMA on 01/01/25 11:03 Reason Not Given: Patient Refused Coding Level of Care Code New Pt Level 4 (71283) Diagnoses DVT (deep venous thrombosis) I82.409 History of kidney stones Z87.442 History of removal of ureteral stent Z98.890 Lower extremity edema R60.0 BPH (benign prostatic hyperplasia) N40.0 History of esophageal ulcer Z87.19 History of gastric ulcer Z87.11 History of anemia Z86.2 History of GI bleed Z87.19 History of hernia repair Z98.890; Z87.19 Assessment & Plan Assessment & Plan (1) DVT (deep venous thrombosis): Code(s): I82.409 - Acute embolism and thrombosis of unspecified deep veins of unspecified lower extremity Category: Medical (2) History of kidney stones: Code(s): Z87.442 - Personal history of urinary calculi Category: Medical (3) History of removal of ureteral stent: Code(s): Z98.890 - Other specified postprocedural states Category: Surgical (4) Lower extremity edema: Code(s): R60.0 - Localized edema (5) BPH (benign prostatic hyperplasia): Code(s): N40.0 - Benign prostatic hyperplasia without lower urinary tract symptoms (6) History of esophageal ulcer: Code(s): Z87.19 - Personal history of other diseases of the digestive system (7) History of gastric ulcer: Code(s): Z87.11 - Personal history of peptic ulcer disease (8) History of anemia: Code(s): Z86.2 - Personal history of diseases of the blood and blood-forming organs and certain disorders involving the immune mechanism (9) History of GI bleed: Code(s): Z87.19 - Personal history of other diseases of the digestive system (10) History of hernia repair: Code(s): Z98.890 - Other specified postprocedural states; Z87.19 - Personal history of other diseases of the digestive system Plan Consent Patient was informed and verbally consented to the use of an ambient scribe for clinic note documentation during this visit. Plan 1. Deep Vein Thrombosis - Continue apixaban for management of DVT. - A referral to vascular surgery at [place] will be placed for further evaluation of chronic DVT and associated edema. 2. Peripheral Edema - The plan to stop furosemide was reversed after physical exam revealed significant lower extremity edema. - Continue furosemide 20 mg once daily, and a 3-month prescription will be sent to [facility]. - Patient is to continue elevating his feet while sleeping. 3. Benign Prostatic Hyperplasia And History Of Kidney Stones - Continue tamsulosin for BPH. - A referral will be provided to the patient for follow-up with urology regarding his history of kidney stones, prior stent, and BPH, as he is overdue for follow-up. 4. Preventive Care: Colon Cancer Screening - As the patient is 69 and has never had colon cancer screening, a Cologuard test will be ordered as a non-invasive option. 5. Medication Reconciliation And Management - Continue pantoprazole and ferrous sulfate as prescribed. 6. General Health Evaluation - A comprehensive lab panel will be ordered to establish baseline values, including liver and kidney function, CBC, hemoglobin A1c, cholesterol, thyroid, B12, folate, and vitamin D. - Bloodwork can be drawn today at the on-site lab. Discussion Notes I discussed the patient's complex medical history, including his prior GI surgeries, DVT, and urological issues, with him and his brother. We reviewed his current medication list, and I confirmed we would continue apixaban, pantoprazole, tamsulosin, and ferrous sulfate. I explained that I initially intended to stop the furosemide due to the unclear indication and his history of dehydration and hypotension, but after observing significant edema in his legs during the physical exam, I recommended continuing the medication, to which they agreed. I recommended two new referrals: one to a urologist for follow-up on his BPH and history of kidney stones, and another to a vascular surgeon for his chronic right leg DVT and edema. For colon cancer screening, I explained that a non-invasive Cologuard test would be a suitable alternative to a colonoscopy, given his age and extensive abdominal surgical history, and they consented to this plan. I ordered a comprehensive panel of bloodwork to get a baseline on his overall health and instructed them that he could get it done in the lab today. Finally, I encouraged them to set up the patient portal for easy communication regarding his medications and other needs. Patient Instructions - Continue taking all your current medications, including Eliquis, iron, pantoprazole, tamsulosin, and the furosemide (water pill). - Please go to the lab in our building today to have your blood drawn for testing. - You will receive a Cologuard test kit in the mail for colon cancer screening. - Follow the instructions to collect the sample and mail it back. - We will give you a referral slip for a urologist (a doctor who specializes in urinary problems). - Please call their office to schedule a follow-up appointment. - A vascular surgery office from [place] will call you to set up an appointment to check the circulation and swelling in your legs. - Please set up the online patient portal so you can message us with any questions, such as confirming the dose of your stool softener. - Continue to sleep with your feet raised on pillows to help with the swelling. Medical Decision Making The patient is a 69-year-old male with a complex medical history presenting to establish care and manage his chronic conditions and medications. His history is notable for major abdominal surgeries due to a bleeding ulcer from chronic NSAID use, complicated by prolonged hospitalizations and subsequent episodes of dehydration and hypotension. He also has a history of a right leg DVT, for which he is appropriately treated with apixaban; the residual chronic edema warrants further evaluation, prompting a referral to vascular surgery. Regarding his medications, the indication for furosemide was initially unclear, and I considered discontinuing it to avoid precipitating dehydration or electrolyte imbalances, a significant concern given his past admissions for hypotension. However, the physical finding of significant lower extremity edema, worse on the side of his DVT, provided a clear rationale to continue the diuretic. The patient???s urologic history of BPH, kidney stones, and a prior stent necessitates specialist follow-up, as he has been lost to urologic care, so a referral was placed. For health maintenance, the patient is overdue for colon cancer screening. Considering his age and extensive abdominal surgical history, the non-invasive Cologuard test is a more prudent initial screening approach than a colonoscopy, and the patient agreed with this plan. Comprehensive baseline labs were ordered to assess his renal, hepatic, hematologic, and metabolic status, providing a foundation for ongoing management. Total time spent caring for the patient today was 30 minutes. This includes time spent before the visit reviewing the chart, time spent documenting, and time spent reviewing laboratory results, diagnostic imaging, medications, performing a medically necessary evaluation, counseling on diagnoses, care coordination Orders: Orders Complete Blood Count Auto Diff Today Z13.9 - Encounter for screening, unspecified Comprehensive Met. Panel Today Z13.9 - Encounter for screening, unspecified Magnesium Today Z13.9 - Encounter for screening, unspecified UA CC w/rflx Micro + Cult Today Z13.9 - Encounter for screening, unspecified Vitamin B12 and Folate Today Z13.9 - Encounter for screening, unspecified Influenza [id number] Immunization Today Z23 - Encounter for immunization Hemoglobin A1c Today Z13.9 - Encounter for screening, unspecified Hepatitis B Surface Antibody Today Z13.9 - Encounter for screening, unspecified Hepatitis B Surface Antigen Today Z13.9 - Encounter for screening, unspecified Hepatitis C Antibody Today Z13.9 - Encounter for screening, unspecified Lipid Panel Today Z13.9 - Encounter for screening, unspecified TSH reflex Free T4 Today Z13.9 - Encounter for screening, unspecified Vitamin D 1,25 dihydroxy Today Z13.9 - Encounter for screening, unspecified HIV Ab/Ag Today Z13.9 - Encounter for screening, unspecified Referrals Cologuard Test Z12.11 - Encounter for screening for malignant neoplasm of colon, Z12.12 - Encounter for screening for malignant neoplasm of rectum Urology Referral Z87.442 - Personal history of urinary calculi, Z98.890 - Other specified postprocedural states Vascular Surgery Referral I82.409 - Acute embolism and thrombosis of unspecified deep veins of unspecified lower extremity Medications: New furosemide 20 mg PO DAILY 90 tabs 0RF
[2025-01-01 10:53] VITALS: BP 146/70; PULSE 76; TEMP 36.7; O2SAT 96; BMI 27.9
--- OUTSIDE RECORDS SUMMARY | 2025-01-01 13:23 | XMS_ITS | Patient Health Record ---
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 Name Role Phone Juan Ramon DUMONT, Ortega Primary Care Provider Yoselin Velez Unavailable [phone] Allergies No Known Allergies Reason For Referral No Information Medications Medication SIG (Take, Route, Frequency, Duration) Notes Start Date End Date Status Enema 7-19 GM/118ML as directed Rectal As needed 04/05/2024 Active Docusate Sodium 100 MG 1 capsule Orally twice a day 04/05/2024 Active Tamsulosin HCl 0.4 MG 1 capsule Orally O nce a day 04/25/2024 Active Cyanocobalamin 1000 MCG 1 tablet Orally Once a day 05/25/2024 Active Pantoprazole Sodium 40 MG 1 tablet Orall y twice a day 04/05/2024 Active Bisacodyl 10 MG 1 suppository Rectal Once a day As needed 04/05/2024 Active MiraLax 17 GM/SCOOP 1 scoop mixed with 8 ounces of fluid Orally Once a day 04/24/2024 Active Ferrous Sulfate 325 (65 Fe) MG 1 tablet Orally once a day 05/11/2024 Active Enoxaparin Sodium 80 MG/0.8ML 80 mg Injection twice a day 04/10/2024 Active Folic Acid 1 MG 1 tablet Orally Once a day 05/12/2024 Active Ascorbic Acid 500 MG 1 tablet Orally Onc e a day 05/22/2024 Active Acetaminophen 325 MG 2 tablets Orally every 6 hrs As needed for fever 04/24/2024 Active Magnesium Oxide 400 MG 1 tablet Orally O nce a day 04/25/2024 Active Acetaminophen 325 MG 2 tablets Orally every 4 hrs As needed for pain 04/24/2024 Active Magnesium Hydroxide 400 MG/5ML 30 mL Orally Once a day As needed 04/05/2024 Active Lasix 20 MG 1 tablet Orally Once a day 05/16/2024 Active Problems Problem Type SNOMED Code ICD Code Onset Dates Problem Status W/U Status Risk Notes Problem Tinea corporis (83340886) Tinea corporis (B35.4) Active confirmed Problem Protein calorie malnutrition (494520974) Unspecified protein-calorie malnutrition (E46) Active confirmed Problem Essential hypertension (96186034) Essential (primary) hypertension (I10) Active confirmed Problem Unstageable pressure injury of sacral region of back (disorder) (543651860644551 04) Pressure ulcer of sacral region, unstageable (L89.150) Active confirmed Problem Pressure injury of sacral region of back stage III (disorder) (61200375360189) Pressure ulcer of sacral region, stage 3 (L89.153) Active confirmed Problem Neurogenic dysfunction of the urinary bladder (677466104) Neuromuscular dysfunction of bladder, unspecified (N31.9) Active confirmed Problem Oral phase dysphagia (367912018) Dysphagia, oral phase (R13.11) Active confirmed Problem Walking disability (153117224) Difficulty in walking, not elsewhere classified (R26.2) Active confirmed Problem Pressure injury of deep tissue of sacral region of back (disorder) (332398108860134 108) Pressure injury of deep tissue of sacral region (L89.156) Active confirmed Vital Signs Weight-kg 71.21 kg 05/09/2024 most recent gilda ght reflected from 05/06/24 on [facility] Weight 157 lbs 05/09/2024 most recent gilda ght reflected from 05/06/24 on [facility] Encounters Encounter Location Date Provider Diagnosis [address] [place] [address] 04/18/2024 Yoselin Abraham Pressure injury of deep tissue of sacral region L89.156 and Unspecified protein-calorie malnutrition E46 [address] [address] [place] [address] 04/11/2024 Yoselin Abraham Pressure injury of deep tissue of sacral region L89.156 and Unspecified protein-calorie malnutrition E46 [address] [place] [address] 04/25/2024 Yoselin Abraham Pressure ulcer of sacral region, unstageable L89.150 ; Unspecified protein-calorie malnutrition E46 and Tinea corporis B35.4 [address] [place] [address] 05/02/2024 Yoselin Jarad Unspecified protein-calorie malnutrition E46 ; Pressure ulcer of sacral region, stage 3 L89.153 and Tinea corporis B35.4 [address] [place] [address] 05/09/2024 Yoselin Baxter Unspecified protein-calorie malnutrition E46 ; Pressure ulcer of sacral region, stage 3 L89.153 and Tinea corporis B35.4 [address] [place] [address] 05/16/2024 Yoselin Abraham Unspecified protein-calorie malnutrition E46 ; Pressure ulcer of sacral region, stage 3 L89.153 and Tinea corporis B35.4 [address] [place] [address] 06/01/2024 Yoselin Abraham Unspecified protein-calorie malnutrition E46 ; Pressure ulcer of sacral region, stage 3 L89.153 and Tinea corporis B35.4 Assessments Encounter Date Diagnosis (ICD Code) Assessment Notes Treatment Notes Treatment Clinical Notes Section Notes 04/11/2024 Unspecified protein-calorie malnutrition (ICD-10 - E46) 04/11/2024 Pressure injury of deep tissue of sacral [...] agree w plan of care. I Yoselin Baxter MSN, DANIELLE-AKI examined, evaluated and treated the patient. Dr. Aydee Gomez was available for any question or concerns that I may have had. 04/18/2024 Pressure injury of deep tissue of [...] agree w plan of care. I Yoselin WOLFE, DANIELLE-AKI examined, evaluated and treated the patient. Dr. Aydee Gomez was available for any question or concerns that I may have had. 04/25/2024 Unspecified protein-calorie malnutrition (ICD-10 - E46) 04/25/2024 Pressure ulcer of sacral region, unstageable (ICD-10 - L89.150) On exam, alert & cooperative with care. We examined his coccyx which is full thickness, center is full of slough and surrounding tissue has dry flaky erythema concerning for a fungal rash. There were no findings to indicate any acute underlying infectious processes. I cleaned the wound with wound cleanser and applied triad paste I recommended nursing continue to apply triad paste BID and alternate with 2% miconazole cream BID & PRN to his coccyx extending to [...] agree w plan of care. I Yoselin WOLFE, BAM examined, evaluated and treated the patient. Dr. Aydee Gomez was available for any question or concerns that I may have had. 05/02/2024 Unspecified protein-calorie malnutrition (ICD-10 - E46) 05/02/2024 Pressure ulcer of sacral region, stage 3 (ICD-10 - L89.153) On exam, alert & cooperative with care. We examined his coccyx which is much improved; the periwound fungal rash is almost healed and the wound is cleaning up nicely w mixed granular tissue and slough. There were no findings to indicate any acute underlying infectious processes. I cleaned the wound with wound cleanser and applied triad paste I recommended nursing continue to apply triad paste BID and alternate with 2% miconazole cream BID & PRN to his coccyx extending to [...] plan of care. I Yoselin Abraham MSN, AGEDGAR-AKI examined, evaluated and treated the patient. Dr. Aydee Gomez was available for any question or concerns that I may have had. 05/09/2024 Unspecified protein-calorie malnutrition (ICD-10 - E46) 05/16/2024 Unspecified protein-calorie malnutrition (ICD-10 - E46) 06/01/2024 Unspecified protein-calorie malnutrition (ICD-10 - E46) 06/01/2024 Pressure ulcer of sacral region, stage 3 (ICD-10 - L89.153) On exam, alert & cooperative with care. We examined his coccyx which is nicely resolved with pink epithelial tissue. There were no findings to indicate any acute underlying infectious processes. I cleaned the wound with wound cleanser and applied triad paste for protection I recommended nursing apply HBC with care to his coccyx extending to bilateral buttocks. Turn, reposition & offload Q2 hours & PRN to aid in wound healing. Encourage appropriate dietary supplementation to aid in wound healing. Falls protocol in place. He does not require a follow up at this time but I will follow up with new or reopened areas and nursing will reach out in the interim w any questions or concerns. Patient and nursing agree w plan of care. I Yoselin Abraham MSN, DANIELLE-BC examined, evaluated and treated the patient. Dr. Aydee Gomez was available for any question or concerns that I may have had. 05/16/2024 Pressure ulcer of sacral region, stage 3 (ICD-10 - L89.153) On exam, alert & cooperative with care. We examined his coccyx which continues to slowly improve. There were no findings to indicate any acute underlying infectious processes. I cleaned the wound with wound cleanser and applied triad paste for protection I recommended nursing apply triad paste QS & PRN to his coccyx extending to bilateral buttocks. Turn, reposition & offload Q2 hours & PRN to aid in wound healing. Encourage appropriate dietary supplementation to aid in wound healing. Falls protocol in place. I will follow up in about two weeks to monitor his progress and nursing will reach out in the interim w any questions or concerns. Patient and nursing agree w plan of care. I Yoselin Abraham MSN, AGPCNP-BC examined, evaluated and treated the patient. Dr. Aydee Gomez was available for any question or concerns that I may have had. 05/09/2024 Pressure ulcer of sacral region, stage 3 (ICD-10 - L89.153) On exam, alert & cooperative with care. We examined his coccyx which is much improved; the periwound fungal rash is nicely resolved and the wound is cleaning up nicely w mixed granular tissue and slough. There were no findings to indicate any acute underlying infectious processes. I cleaned the wound with wound cleanser and applied triad paste I recommended nursing continue to apply triad paste BID and alternate with 2% miconazole cream BID & PRN to his coccyx extending to [...] or concerns that I may have had. 05/02/2024 Tinea corporis (ICD-10 - B35.4) 04/25/2024 Tinea corporis (ICD-10 - B35.4) 04/18/2024 Unspecified protein-calorie malnutrition (ICD-10 - E46) 05/09/2024 Tinea corporis (ICD-10 - B35.4) 05/16/2024 Tinea corporis (ICD-10 - B35.4) 06/01/2024 Tinea corporis (ICD-10 - B35.4) 04/25/2024 Other 05/02/2024 Other Plan Of Treatment No Information Insurance Providers Payer Name Payer Address Payer Phone Subscriber Number Group Number Insured Name Patient Relationship to Insured Coverage Start Date Coverage End Date Medicare [address] JULIEN AGUIAR [id number] Elliot Coombs Self - patient is the insured 9 Medical (General) History Medical History History ICD Code Acute kidney failure, unspecified N17.9 Cutaneous abscess of abdominal wall L02. 211 Difficulty in walking, not elsewhere cla ssified R26.2 Dysphagia, oral phase R13.11 Essential (primary) hypertension I10 Muscle weakness (generalized) M62.81 Need for assistance with personal care Z 74.1 Neuromuscular dysfunction of bladder, un specified N31.9 Other bacterial infections of unspecifie d site A49.8 Other Gram-negative sepsis A41.59 Unspecified protein-calorie malnutrition E46 Urinary tract infection, site not specif ied N39.0 Weakness R53.1
--- OUTSIDE RECORDS SUMMARY | 2025-01-30 20:00 | XMS_ITS | Clinical Summary ---
Author Organization Unknown Care Team Providers Care Water Main Pipe Layer Name Role Phone AMY MANAGER OF EXHIBITIONS AND COLLECTIONS, HENRY Unavailable Unavailable RN, TONI Unavailable Unavailable CHRISSIE IVYN, GLENYS Unavailable Unavailable YESSICA PT, MARY Unavailable Unavailable SHAYLEE CHANNEL BUSINESS MANAGER, RONAN Unavailable Unavailable [place] OT, SHAUNA Unavailable Unavailable Payers Payer Name Policy Type Policy Number Effective Date Expira tion Date MEDICARE.NGS.PDGM [id number] Problems Condition Name Condition Details Condition Category Status Onset Date Resolution Date Last Treatment Date Treating Clinician Comments ENCNTR FOR SURGICAL AFTCR [facility] Active 12-03 00:00: 00 Encounter for sepsis aftercare Active 12-03 00:00: 00 PERSONAL HISTORY OF PULMONARY EMBOLISM Active 11-29 00:00: 00 PERSONAL HISTORY OF OTHER VENOUS THROMBOSIS AND EMBOLISM Active 11-29 00:00: 00 BENIGN PROSTATIC HYPERPLASIA WITH LOWER URINARY TRACT SYMP Active 03-07 00:00: 00 OTHER OBSTRUCTIVE AND REFLUX UROPATHY Active 11-29 00:00: 00 RETENTION OF URINE, UNSPECIFIED Active 11-07 00:00: 00 UNSPECIFIED ABDOMINAL HERNIA WITHOUT OBSTRUCTION OR GANGRENE Active 11-07 00:00: 00 NEUROMUSCULA R DYSFUNCTION OF BLADDER, UNSPECIFIED Active 12-03 00:00: 00 ANEMIA, UNSPECIFIED Active 11-29 00:00: 00 ESSENTIAL (PRIMARY) HYPERTENSION Active 03-07 00:00: 00 UNSPECIFIED PROTEIN-CECIL KIRIT MALNUTRITION Active 12-03 00:00: 00 DYSPHAGIA, ORAL PHASE Active 12-03 00:00: 00 DEFICIENCY OF OTHER SPECIFIED B GROUP VITAMINS Active 11-07 00:00: 00 LOCALIZED EDEMA Active 2025-0 9-25 00:00: 00 PRESENCE OF UROGENITAL IMPLANTS Active 1- 00:00: 00 PERSONAL HISTORY OF URINARY (TRACT) INFECTIONS Active 4-26 00:00: 00 [facility] (CURRENT) USE OF ANTICOAGULAN TS Active 12-03 00:00: 00 Allergies, Adverse Reactions, Alerts Allergy Name Allergy Type Status Severity Reaction(s) Onset Date Inactive Date Treating Clinician Comments NO KNOWN ALLERGIES Propensity to adverse reactions Active 12-03 12:34: 31 Medications Ordered Medication Name Filled Medication Name Start Date Stop Date Current Medication? Ordering Clinician Indication Dosage Frequency Signature (SIG) Comments Components furosemide 20 mg tablet 11-26 00:00: 00 Yes [id number] EDEMA 1 tablet DAILY 1 tablet DAILY (route: oral) Med Classific ation: Cardiovas cular Therapy Agents tamsulosin 0.4 mg capsule 11-26 00:00: 00 Yes [id number] BPH 1 capsule DAILY 1 capsule DAILY (route: oral) Med Classific ation: Genitouri nary Therapy Eliquis 5 mg tablet 11-21 00:00: 00 12-10 23:59 :00 No [id number] BLOOD THINNER 1 tablet DAILY 1 tablet DAILY (route: oral) Med Classific ation: Hematolog ical Agents pantoprazol e 40 mg tablet,alyssa yed release 11-19 00:00: 00 Yes [id number] GERD 1 tablet DAILY 1 tablet DAILY (route: oral) Med Classific ation: Gastroint estinal Therapy Agents ferrous sulfate 325 mg (65 mg iron) tablet 12-03 00:00: 00 Yes [id number] IRON SUPPLEMENT 1 tablet DAILY 1 tablet DAILY (route: oral) Med Classific ation: Electroly te Balance-N utritiona l Products folic acid 1 mg tablet 12-03 00:00: 00 Yes [id number] SUPPLEMENT 1 tablet DAILY 1 tablet DAILY (route: oral) Med Classific ation: Electroly te Balance-N utritiona l Products magnesium oxide 400 mg (241.3 mg magnesium) tablet 12-03 00:00: 00 Yes [id number] SUPPLEMENT 1 tablet DAILY 1 tablet DAILY (route: oral) Med Classific ation: Electroly te Balance-N utritiona l Products docusate sodium 100 mg capsule 2024-03 006 00:00: 00 Yes [id number] CONSTIPATIO N 1 capsule 2 TIMES DAILY 1 capsule 2 TIMES DAILY (route: oral) Med Classific ation: Gastroint estinal Therapy Agents Eliquis 5 mg tablet 2024-03 006 00:00: 00 Yes [id number] ANTICOAGULA TION 1 tablet 2 TIMES DAILY 1 tablet 2 TIMES DAILY (route: oral) Med Classific ation: Hematolog ical Agents mecobalamin (vitamin B12) 1,000 mcg chewable tablet 2024-03 0 00:00: 00 Yes [id number] SUPPLEMENT 1 tablet DAILY 1 tablet DAILY (route: oral) Med Classific ation: Electroly te Balance-N utritiona l Products Vitamin C 500 mg tablet 2024-03 0 00:00: 00 Yes [id number] SUPPLEMENT 1 tablet DAILY 1 tablet DAILY (route: oral) Med Classific ation: Electroly te Balance-N utritiona l Products Vital Signs Vital Name Observation Time Observation Value Commen ts Temperature 2024-12-12 15:28:00.000 98.3 [degF] Temperature 2024-12-10 14:18:00.000 99 [degF] Temperature 2024-12-05 09:49:00.000 98 [degF] Temperature 2024-12-03 12:39:00.000 98.2 [degF] BMI (%) 2024-12-03 12:21:42.000 26 kg/m2 Height 2024-12-03 12:21:35.000 68 [in_us] Pulse 2024-12-12 15:28:00.000 70 /min Pulse 2024-12-10 14:18:00.000 78 /min Pulse 2024-12-05 09:49:00.000 87 /min Pulse 2024-12-03 12:39:00.000 91 /min O2 Saturation (%) 2024-12-10 14:18:00.000 98 % O2 Saturation (%) 2024-12-05 09:50:00.000 96 % O2 Saturation (%) 2024-12-03 12:39:00.000 96 % Respirations 2024-12-12 15:28:00.000 17 /min Respirations 2024-12-10 14:18:00.000 18 /min Respirations 2024-12-05 09:49:00.000 18 /min Respirations 2024-12-03 12:39:00.000 17 /min Weight (lbs) 2024-12-03 12:21:42.000 172 [lb_av] Systolic Blood Pressure 2024-12-12 15:28:00.000 102 mm [Hg] Systolic Blood Pressure 2024-12-10 14:18:00.000 108 mm [Hg] Systolic Blood Pressure 2024-12-05 09:49:00.000 118 mm [Hg] Systolic Blood Pressure 2024-12-03 12:39:00.000 120 mm [Hg] Diastolic Blood Pressure 2024-12-12 15:28:00.000 68 mm [Hg] Diastolic Blood Pressure 2024-12-10 14:18:00.000 82 mm [Hg] Diastolic Blood Pressure 2024-12-05 09:49:00.000 80 mm [Hg] Diastolic Blood Pressure 2024-12-03 12:39:00.000 78 mm [Hg] Plan of Treatment Planned Activity Planned Date Details Comments Future Scheduled Test RN TO OBSE RVE, ASSESS, EVALUATE, AND DEVELOP AN INDIVIDUALIZED PLAN OF CARE. AGENCY MAY ACCEPT ORDERS FROM CONSULTING PHYSICIANS. RN TO OBSERVE AND ASSESS, ASSISTANT SOFTBALL COACH/QUALITY ENGINEER MEDICAL DEVICE TO OBSERVE FOR RISK FOR FALLS AND INSTRUCT IN FALL PREVENTION, HOME SAFETY, MEDICATION MANAGEMENT, INFECTION PREVENTION, AND NUTRITION MANAGEMENT. RN/ASSISTANT SOFTBALL COACH/QUALITY ENGINEER MEDICAL DEVICE NURSE MAY PERFORM O2 SATURATION LEVEL ON ADMISSION AND PRN FOR RN TO ASSESS/ASSISTANT SOFTBALL COACH TO OBSERVE PATIENT, WITH NOTIFICATION TO THE PHYSICIAN IF SATURATION IS 90% IN THE ABSENCE OF MORE SPECIFIC PARAMETERS FROM THE PHYSICIAN. AGENCY MAY PERFORM A RESUMPTION OF CARE VISIT FOLLOWING ANY HOSPITAL ADMISSION. RN/ASSISTANT SOFTBALL COACH/QUALITY ENGINEER MEDICAL DEVICE TO MONITOR CO-MORBID CONDITIONS LISTED ON THE PLAN OF CARE AND ANY NEW CONDITIONS THAT PRESENT THEMSELVES DURING THIS EPISODE TO IDENTIFY CHANGES AND INTERVENE TO MINIMIZE COMPLICATIONS. [code = RN TO OBSERVE, ASSESS, EVALUATE, AND DEVELOP AN INDIVIDUALIZED PLAN OF CARE. AGENCY MAY ACCEPT ORDERS FROM CONSULTING PHYSICIANS. RN TO OBSERVE AND ASSESS, ASSISTANT SOFTBALL COACH/QUALITY ENGINEER MEDICAL DEVICE TO OBSERVE FOR RISK FOR FALLS AND INSTRUCT IN FALL PREVENTION, HOME SAFETY, MEDICATION MANAGEMENT, INFECTION PREVENTION, AND NUTRITION MANAGEMENT. RN/ASSISTANT SOFTBALL COACH/QUALITY ENGINEER MEDICAL DEVICE NURSE MAY PERFORM O2 SATURATION LEVEL ON ADMISSION AND PRN FOR RN TO ASSESS/ASSISTANT SOFTBALL COACH TO OBSERVE PATIENT, WITH NOTIFICATION TO THE PHYSICIAN IF SATURATION IS 90% IN THE ABSENCE OF MORE SPECIFIC PARAMETERS FROM THE PHYSICIAN. AGENCY MAY PERFORM A RESUMPTION OF CARE VISIT FOLLOWING ANY HOSPITAL ADMISSION. RN/ASSISTANT SOFTBALL COACH/QUALITY ENGINEER MEDICAL DEVICE TO MONITOR CO-MORBID CONDITIONS LISTED ON THE PLAN OF CARE AND ANY NEW CONDITIONS THAT PRESENT THEMSELVES DURING THIS EPISODE TO IDENTIFY CHANGES AND INTERVENE TO MINIMIZE COMPLICATIONS.] Future Scheduled Test RISK FOR H OSPITALIZATION; RN TO ASSESS/TEACH, QUALITY ENGINEER MEDICAL DEVICE/ASSISTANT SOFTBALL COACH TO OBSERVE/TEACH PATIENT/CAREGIVER ON RISK FOR HOSPITALIZATION/EMERGENCY ROOM VISITS, TEACH SIGNS AND SYMPTOMS THAT PUT PATIENT AT RISK, WHEN TO NOTIFY NURSE/PHYSICIAN OF COMPLICATIONS/DECLINE, AND WHEN TO CALL 911. [code = RISK FOR HOSPITALIZATION; RN TO ASSESS/TEACH, QUALITY ENGINEER MEDICAL DEVICE/ASSISTANT SOFTBALL COACH TO OBSERVE/TEACH PATIENT/CAREGIVER ON RISK FOR HOSPITALIZATION/EMERGENCY ROOM VISITS, TEACH SIGNS AND SYMPTOMS THAT PUT PATIENT AT RISK, WHEN TO NOTIFY NURSE/PHYSICIAN OF COMPLICATIONS/DECLINE, AND WHEN TO CALL 911.] Future Scheduled Test MEDICATION MANAGEMENT; RN/ASSISTANT SOFTBALL COACH/QUALITY ENGINEER MEDICAL DEVICE TO REVIEW MEDICATIONS FOR INTERACTIONS, EFFECTIVENESS OF DRUG THERAPY, AND SIGNS/SYMPTOMS OF ADVERSE REACTIONS. MAY INSTRUCT AND REINFORCE MEDICATION TEACHING RELATED TO THE USE OF MEDICATIONS, DOSAGE, FREQUENCY, PURPOSE, SIDE EFFECTS, AND TO REPORT COMPLICATIONS. [code = MEDICATION MANAGEMENT; RN/ASSISTANT SOFTBALL COACH/QUALITY ENGINEER MEDICAL DEVICE TO REVIEW MEDICATIONS FOR INTERACTIONS, EFFECTIVENESS OF DRUG THERAPY, AND SIGNS/SYMPTOMS OF ADVERSE REACTIONS. MAY INSTRUCT AND REINFORCE MEDICATION TEACHING RELATED TO THE USE OF MEDICATIONS, DOSAGE, FREQUENCY, PURPOSE, SIDE EFFECTS, AND TO REPORT COMPLICATIONS.] Future Scheduled Test RN TO ASSE SS/TEACH, ASSISTANT SOFTBALL COACH/QUALITY ENGINEER MEDICAL DEVICE TO OBSERVE/TEACH SURGICAL AFTERCARE MANAGEMENT TO AVOID HOSPITALIZATION. [code = RN TO ASSESS/TEACH, ASSISTANT SOFTBALL COACH/QUALITY ENGINEER MEDICAL DEVICE TO OBSERVE/TEACH SURGICAL AFTERCARE MANAGEMENT TO AVOID HOSPITALIZATION.] Future Scheduled Test PAIN MANAG EMENT; RN TO ASSESS AND TEACH, QUALITY ENGINEER MEDICAL DEVICE/ASSISTANT SOFTBALL COACH TO OBSERVE AND TEACH AND PROVIDE EDUCATION ON PAIN MANAGEMENT TECHNIQUES. [code = PAIN MANAGEMENT; RN TO ASSESS AND TEACH, QUALITY ENGINEER MEDICAL DEVICE/ASSISTANT SOFTBALL COACH TO OBSERVE AND TEACH AND PROVIDE EDUCATION ON PAIN MANAGEMENT TECHNIQUES.] Future Scheduled Test BLOOD CLOT MANAGEMENT; RN TO ASSESS AND TEACH/ ASSISTANT SOFTBALL COACH /QUALITY ENGINEER MEDICAL DEVICE TO OBSERVE AND TEACH AND PROVIDE EDUCATION ON BLOOD CLOT MANAGEMENT. [code = BLOOD CLOT MANAGEMENT; RN TO ASSESS AND TEACH/ ASSISTANT SOFTBALL COACH /QUALITY ENGINEER MEDICAL DEVICE TO OBSERVE AND TEACH AND PROVIDE EDUCATION ON BLOOD CLOT MANAGEMENT.] Future Scheduled Test FALL REDUC TION MANAGEMENT; RN TO ASSESS AND OBSERVE, ASSISTANT SOFTBALL COACH/QUALITY ENGINEER MEDICAL DEVICE TO OBSERVE FALL RISK FACTORS AND EDUCATE PATIENT/CAREGIVER ON STRATEGIES TO MINIMIZE THE RISK OF FALLING. [code = FALL REDUCTION MANAGEMENT; RN TO ASSESS AND OBSERVE, ASSISTANT SOFTBALL COACH/QUALITY ENGINEER MEDICAL DEVICE TO OBSERVE FALL RISK FACTORS AND EDUCATE PATIENT/CAREGIVER ON STRATEGIES TO MINIMIZE THE RISK OF FALLING.] Future Scheduled Test PHYSICAL T HERAPIST TO EVALUATE FOR SAFETY AND STRENGTHENING. [code = PHYSICAL THERAPIST TO EVALUATE FOR SAFETY AND STRENGTHENING.] Goal Patient Goal - GET STRONGER Goal Provider Goal - PATIENT/CAREGIVER WILL VERBALIZE/DEMONSTRATE UNDERSTANDING OF FALL RISK FACTORS AND IMPLEMENT STRATEGIES TO MINIMIZE FALL RISK. PATIENT/CAREGIVER WILL VERBALIZE/DEMONSTRATE AN ABILITY TO ADHERE TO FALL REDUCTION SELF-MANAGEMENT AND LIFE-STYLE CHANGES BY END OF EPISODE Goal Provider Goal - A PLAN OF CARE WILL BE ESTABLISHED THAT MEETS THE PATIENT S NEEDS. PATIENT WILL DEMONSTRATE OXYGEN SATURATION WITHIN NORMAL LIMITS OR PATIENT S OPTIMAL LEVEL ESTABLISHED BY THE PHYSICIAN THROUGHOUT CARE. CHANGES TO CO-MORBID CONDITIONS AND ANY NEW CONDITIONS WILL BE IDENTIFIED AND REPORTED TO THE PHYSICIAN. Goal Provider Goal - PATIENT / CAREGIVER WILL VERBALIZE / DEMONSTRATE UNDERSTANDING OF PAIN CONTROL MEASURES BY END OF EPISODE Goal Provider Goal - PATIENT/CAREGIVER WILL VERBALIZE UNDERSTANDING OF CARE AND MANAGEMENT OF BLOOD CLOT BY END OF EPISODE. Goal Provider Goal - PATIENT/CAREGIVER WILL VERBALIZE UNDERSTANDING OF SIGNS AND SYMPTOMS THAT PUT THE PATIENT AT RISK FOR HOSPITALIZATION /EMERGENCY ROOM VISITS, WHEN TO NOTIFY NURSE/PHYSICIAN OF COMPLICATIONS/DECLINE AND WHEN TO CALL 911. Goal Provider Goal - PATIENT/CAREGIVER TO VERBALIZE, AND CONSISTENTLY DEMONSTRATE EFFECTIVE, SAFE MANAGEMENT OF MEDICATION INCLUDING KNOWLEDGE OF EFFECTIVENESS, POTENTIAL SIDE EFFECTS AND DRUG REACTIONS AND WHEN TO CONTACT THE APPROPRIATE CARE PROVIDER. PATIENT/CAREGIVER WILL BE ABLE TO VERBALIZE UNDERSTANDING OF MEDICATION REGIMEN AND ACCURATELY TAKE MEDICATIONS PRESCRIBED WITHOUT ADVERSE EFFECTS BY END OF EPISODE Goal Provider Goal - PATIENT/CAREGIVER WILL VERBALIZE/DEMONSTRATE POSTOPERATIVE CARE TO MINIMIZE COMPLICATION AND AVOID HOSPITALIZATIONS BY THE END OF THE EPISODE. Encounters Start Date/Time End Date/Time Encounter Type Admission Type Attending [facility] Care Department Encounter ID Discharge Date Discharge Status Discharge Condition Discharge Reason Percent Goals Met 2024-12-03 00:00:00 2025-01-31 00:00:00 Outpatient NEW ADMISSION [facility] [id number] [phone]
== END 2025-01-01 11:33 | disposition home or self-care (01) ==
PROVIDERS: PCP Student in an Organized Health Care Education/Training Program; Visit Provider Student in an Organized Health Care Education/Training Program
DX: I82.409 Acute embolism and thrombosis of unspecified deep veins of unspecified lower extremity (principal); Z87.442 Personal history of urinary calculi; Z98.890 Other specified postprocedural states; R60.0 Localized edema; N40.0 Benign prostatic hyperplasia without lower urinary tract symptoms; Z87.19 Personal history of other diseases of the digestive system; Z87.11 Personal history of peptic ulcer disease; Z86.2 Personal history of diseases of the blood and blood-forming organs and certain disorders involving the immune mechanism; Z23 Encounter for immunization

== ENCOUNTER 2025-01-16 11:00 | Outpatient (AMB) | payer MEDICARE, MEDICAID, SELFPAY ==
--- NOTE | 2025-01-16 11:08 | A.OFFPC_ITS ---
Vital Signs 01/16/25 11:13 Height 5 ft 6.22 in Weight 182 lb 6 oz BMI 29.2 BP 148/79 H Blood Pressure Location Lt brachial Position Sitting Respiration 16 Pulse 76 Pulse Source Monitor Temp 97.9 F Temp Source Oral Pulse Oximetry (%) 98 Oxygen Delivery Method Room Air Intake Visit Reasons: 2 wk f/u - lab review Intake Note: lab review Medical Social Consultant Required: No Accompanied by: Brother Allergies No Known Allergies Allergy (Verified 01/16/25 11:12) Tobacco use date assessed: 01/01/25 Fall risk assessment: No Falls in past year Last assessed Fall Risk: 01/16/25 Dental Screening Dental Screen Date: 01/01/25 HPI HPI Comments History of Present Illness Details History of Present Illness The patient is a 69-year-old male presenting for a review of laboratory results. Asymptomatic Bacteriuria: The patient has a history of a recent urological procedure involving a stent and catheter use. The catheter was removed in June. He has a history of prior urinary infections that were treated with antibiotics, with the last course ending before June. Recent urinalysis detected blood, white blood cells, and a culture positive for Pseudomonas. The patient is asymptomatic, denying any fever, chills, or dysuria. Hyperlipidemia: Recent non-fasting lipid panel showed a total cholesterol of 191 mg/dL, LDL of 101 mg/dL, and triglycerides of 216 mg/dL. Health Maintenance: The patient has been referred to urology and logistics engineering manager, with appointments scheduled for March 14 and April 02, respectively. A test kit for stool-based colon cancer screening was ordered but has not yet been received. Surgical History: - History of kidney stent placement Diagnostic Results: - Complete Blood Count (CBC): White bloo d cells, red blood cells, hemoglobin, hematocrit, and platelets are normal. - Comprehensive Metabolic Panel (CMP): S odium, potassium, and renal function are good. - BUN: Slightly high, possibly due to de hydration. - Random Glucose: 87 mg/dL. - Hemoglobin A1c: 5.4%. - Liver Function Tests: Normal. - Lipid Panel (non-fasting): Total tala sterol 191 mg/dL, LDL 101 mg/dL, and triglycerides 216 mg/dL. - Vitamin B12: 871. - Vitamin D, Folate, and Thyroid studies : Normal. - Urinalysis: Positive for blood and whi te blood cells. - Urine Culture: Positive for Pseudomona s. - Infectious Disease Screen: Negative fo r Hepatitis B, Hepatitis C, and HIV. Past Medical History - History of urinary tract infections tr eated with antibiotics. - History of urinary catheter use. Health Maintenance - The patient will proceed with his sche duled appointment with Urology on March 14 and Vascular on April 02. - A stool collection kit for colon cance r screening will be sent by mail; the patient was educated on its use. - Recommended follow-up in 3 months. [facility] Medical History (Updated 01/16/25 @ 20:33 by Fernando Louie MD) Hyperlipidemia DVT (deep venous thrombosis) History of kidney stones Surgical History History of removal of ureteral stent Family History Mother Diabetes Parkinson disease Father Heart attack Social History (Updated 01/16/25 @ 11:13 by Romario Allison CMA) Housing: Apartment Alcohol intake: never Patient Tobacco Use Status: Never used Tobacco service: No Current occupational status: retired Cognitive needs: Yes (walker) Hearing needs: No Vision needs: Yes (rx glasses) Questionnaire Thrive Questionnaire Date Thrive assessed: 01/01/25 I am a: Patient What is your living situation today?: I choose not to answer this question Within the past 12 months, did the food you bought not last and you didn't have the money to get more?: I choose not to answer this question Within the past 12 months, did you worry whether your food would run out before you got money to buy more?: I choose not to answer this question Do you have trouble paying for medicines?: I choose not to answer this question Do you have trouble getting transportation to medical appointments?: I choose not to answer this question Do you have trouble paying your heating and electricity bill?: I choose not to answer this question Do you have trouble taking care of your child, family member or friend?: I choose not to answer this question Are you currently unemployed and looking for a job?: I choose not to answer this question Are you interested in more education?: I choose not to answer this question Please select the resources that you would like help with: None Currently or been in a relationship where the following occur: I choose not to answer THRIVE Score: 0 ANGELIC-7 AMB Questionnaire ANGELIC-7 Date ANGELIC - 7 assessed: 01/01/25 Trouble relaxin = Not at all Being so restless that it is hard to sit still: 0 = Not at all Becoming easily annoyed or irritable: 0 = Not at all Feeling afraid as if something awful might happen: 0 = Not at all Source: Developed by Drs. Jose Bhatti, Kim De Paz, Solomon Arboleda and colleagues, with an educational richard from [employer]. Review of Systems Narrative Review of Systems - Constitutional: Denies fevers and chills. - Genitourinary: Denies dysuria and any sensation of bladder fullness. 10-point ROS reviewed and negative except as noted in HPI Physical exam (Primary Care) Vital Signs: Last Vital Signs Temp 97.9 F 01/16/25 11:13 Pulse 76 01/16/25 11:13 Resp 16 01/16/25 11:13 BP 148/79 H 01/16/25 11:13 Pulse Ox 98 01/16/25 11:13 Oxygen Delivery Method Room Air 01/16/25 11:13 BMI result Body Mass Index 29.2 Tobacco/Smoking Status: Tobacco use Status Tobacco use date assessed 01/01/25 01/16/25 11:11 Patient Tobacco Use Status Never used Tobacco 01/16/25 11:13 Thrive Assessment: Date of Thrive Assessment Date Thrive assessed 01/01/25 01/16/25 11:11 Currently or been in a relationship where the following occur: I choose not to answer Narrative Physical Exam General: Well-appearing, in no acute distress. Vital signs: Within normal limits. HEENT: Normocephalic, atraumatic. PERRLA, EOMI. Conjunctiva clear, sclera anicteric. Oropharynx clear, mucous membranes moist. TMs intact bilaterally. Neck: Supple, no lymphadenopathy, no thyromegaly, no JVD or carotid bruits. Cardiovascular: RRR, normal S1/S2, no murmurs, rubs, or gallops. Peripheral pulses 2+ and symmetric. No edema. Respiratory: Lungs clear to auscultation bilaterally, no wheezes, rales, or rhonchi. Normal effort. Abdomen: Soft, non-tender, non-distended. Normoactive bowel sounds. No hepatosp lenomegaly, no masses. MSK: Full range of motion, no joint swelling or deformity. Normal gait. Skin: Warm, dry, intact. No rashes, lesions, or pallor. Neuro: Alert and oriented x3. Cranial nerves II-XII intact. Strength 5/5 throughout. Sensation intact. Reflexes 2+ symmetric. Normal coordination and gait. Psych: Appropriate mood and affect. Normal judgment and insight. Coding Level of Care Code Est Pt Level 3 (67779) Diagnoses DVT (deep venous thrombosis) I82.409 History of kidney stones Z87.442 History of removal of ureteral stent Z98.890 Hyperlipidemia E78.5 Asymptomatic bacteriuria R82.71 Assessment & Plan Assessment & Plan (1) DVT (deep venous thrombosis): Code(s): I82.409 - Acute embolism and thrombosis of unspecified deep veins of unspecified lower extremity Category: Medical (2) History of kidney stones: Code(s): Z87.442 - Personal history of urinary calculi Category: Medical (3) History of removal of ureteral stent: Code(s): Z98.890 - Other specified postprocedural states Category: Surgical (4) Hyperlipidemia: Code(s): E78.5 - Hyperlipidemia, unspecified Category: Medical (5) Asymptomatic bacteriuria: Code(s): R82.71 - Bacteriuria Plan Consent Patient was informed and verbally consented to the use of an ambient scribe for clinic note documentation during this visit. Plan 1. Asymptomatic Bacteriuria - Urine studies showed WBCs and Pseudomonas and E-coli, but the patient is asymptomatic, denying fever, chills, or dysuria. - Given the recent history of catheterization, this is considered colonization rather than an active infection. - Per guidelines, no antibiotic treatment will be initiated to avoid fostering antibiotic resistance. 2. Hypertriglyceridemia - Triglycerides are slightly elevated at 216 mg/dL on a non-fasting sample. - This level is not associated with increased cardiovascular risk and does not warrant treatment, which is typically reserved for levels over 500 mg/dL to prevent pancreatitis. Discussion Notes I reviewed the patient's recent laboratory results, which were noted to be mostly normal and reassuring. I discussed the finding of Pseudomonas in his urine culture. I explained that because he is asymptomatic and has a recent history of urinary catheterization, this represents colonization rather than an active infection that requires treatment. I advised against antibiotic therapy to prevent the development of drug resistance, which could complicate treatment if he develops a serious infection in the future. I reviewed his lipid panel, noting the triglycerides were slightly high at 216, but explained this is not concerning and does not require treatment unless the level approaches 500-700, due to the risk of pancreatitis. 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 I recommended he return for a follow-up visit in three months. Patient Instructions - Your lab results were mostly normal and look good. - We found bacteria in your urine, but you do not have an infection, so you will not be prescribed antibiotics. - Please contact the office if you develop a fever, chills, or pain when you urinate. - Please keep your scheduled appointment with the urology doctor on March 14. - Please keep your scheduled appointment with the vascular doctor on April 02. - You will receive a stool collection kit in the mail for colon cancer screening. - Please return for a follow-up appointment in three months. Medical Decision Making The patient is a 69-year-old male who presented for a review of laboratory r esults following a recent hospitalization and urological instrumentation. His urinalysis and culture were positive for Pseudomonas, but he is clinically asymptomatic, with no signs or symptoms of a urinary tract infection such as fever, chills, or dysuria. Given his recent catheterization, this finding is consistent with asymptomatic bacteriuria, or colonization. In accordance with clinical guidelines for patients with recent instrumentation, the decision was made to not treat with antibiotics to avoid promoting antimicrobial resistance. His other laboratory findings, including CBC, CMP, and HbA1c, are within normal limits and reassuring. The non-fasting lipid profile showed mildly elevated triglycerides (216 mg/dL), which is not clinically significant for initiating pharmacotherapy at this level, as the primary concern for high triglycerides is pancreatitis risk at levels >500 mg/dL. The plan includes follow-up with urology and logistics engineering manager as previously scheduled, completion of a stool-based colon cancer screening test, and a return visit in three months for monitoring. Total time spent caring for the patient today was 20 minutes. This includes time spent before the visit reviewing the chart, time spent documenting, and time spent reviewing laboratory results, diagnostic imaging, medications, performing a medically necessary evaluation, counseling on diagnoses, care coordination.
[2025-01-16 11:13] VITALS: BP 148/79; PULSE 76; RESP 16; TEMP 36.6; O2SAT 98; BMI 29.2
--- OUTSIDE RECORDS SUMMARY | 2025-01-16 13:33 | XMS_ITS | Data Portability ---
Author Organization [facility], Main Office Address [address], [address] [place] [address] Care Team Providers Care Strength And Conditioning Coach Name Role Phone [facility] OTHER HARLEY ALEXANDER Primary Care Provider [phone] Assessment No assessment recorded. Plan of Treatment [...] [facility] 5 10:08:03 Dysphagia 86189422 Active 2024 Not Available [facility] 10:08:04 Muscle weakness 51628218 Active 2024 Not Available [facility] 10:08:04 Unsteady when standing 191859436 Active 2024 Not Available [facility] 10:08:05 Difficulty walking 899560565 Active 2024 Not Available [facility] 10:08:05 Bile peritonitis 70985245 Active 2024 Not Available [facility] 10:08:05 Abdominal pain 66529415 Active 2024 Not Available [facility] 5 10:08:06 Clostridium difficile colitis 823478908 Active 2024 Not Available [facility] 10:08:06 Sepsis 24853484 Active 2024 Not Available [facility] 5 10:08:07 Ureteric stone 22810735 Active 2024 Not Available [facility] 10:08:07 Disorder of peritoneum 64543086 Active 2024 Not Available [facility] 10:08:07 Acute hypoxemic respiratory failure 576938666 Active 2024 Not Available [facility] 5 10:08:08 Acute kidney injury 83747405 Active 2024 Not Available [facility] 10:08:08 Pneumoperiton eum 09117761 Active 2024 NIKI HERRERA [address], [address], [place], [address] , [facility] 5 07:29:47 Hernia of anterior abdominal wall 004516654 Active 2024 NIKI HERRERA [address], [address], [place], [address] , [facility] 5 07:30:14 Perforation of intestine 83287993 Active 2024 NIKI HERRERA [address], [address], [place], [address] , [facility] 5 07:30:52 Clostridioide s difficile infection 764872288 Active 2024 NIKI HERRERA [address], [address], [place], [address] , [facility] 5 07:31:34 Bacteremia 5639349 Active [address], [place], [address] , [facility] 5 07:31:42 Venous thrombosis 666967495 Active 2024 NIKI HERRERA [address], [address], [place], [address] , [facility] 5 07:31:50 Deep venous thrombosis of lower extremity 538353530 Active 2024 NIKI HERRERA [address], [address], [place], [address] , [facility] 5 07:32:06 Small bowel obstruction 850494027 Active 2024 NIKI HERRERA [address], [address], [place], [address] , [facility] 5 07:32:42 Essential hypertension 03640528 Active 2024 NIKI HERRERA [address], [address], [place], [address] , [facility] 5 07:43:41 Constipation 83515601 Active 2024 NIKI HERRERA [address], [address], [place], [address] , [facility] 5 07:44:05 Problem Notes None recorded. [...] 5 97.3 [degF] 95 /min 14 /min 77901.3 7 g 143/83 mm[Hg] Ortega Delatorre MD [address], [place], [address], [facility] 5 10:43:20 Date Recorded Systolic And Diastolic Provider Name and Address Organization Details Last Updated DateTime 03/23/2024 130/68 mm[Hg] Ortega Delatorre MD [address] , [address], [place], [address], [facility] 03/23/2024 11:34:03 Date Recorded Heart rate Systolic And Diastolic Provider Name and Address Organization Details Last Updated DateTime 03/28/2024 88 /min 114/68 mm[Hg] TAVARES GIL [address] , [address], [place], [address], [facility] 03/28/2024 20:16:33 Social History Question Answer Notes LastModified by Organizat ion Details LastModified Time Tobacco Smoking Status Unknown If Ever Smoked Ortega Delatorre MD [address], [address], [place], [address], [facility] 03/19/2024 11:04:34 Do You Have An Advance Directive? No [email or web address] Information not available 03/19/2024 What Is Your Code Status? Full Code [email or web address] Information not available 03/19/2024 Sex: Unknown Functional Status None recorded. Mental Status None recorded. Family History Nothing Reported Notes:N/C Medical History No medical history recorded. Past Encounters Encounter ID Performer Location Encounter Start Date Encounter Closed Date Diagnosis/Indication Diagnosis SNOMED-CT Code Diagnosis ICD10 Code Diagnosis IMO Codes Diagnosis Note [id number] JIA DAVALOS NP-C [facility] [address] [place] [address] 03/17/2024 07:19:47 03/19/2024 16:20:35 Hernia of anterior abdominal wall 248596743 K43.9 underwent ex-lap, NEW, reduction of ventral hernias, primary repair of D1 perforatio n with omental buttress, and EMILY drain placement (now removed)mo nitor and see above plansurgic al f/up Pneumoperitoneum 8212828 6 K66.8 w/ free air in abdunderwe [...] admit and weeklyf/up [place] [facility] [place] 1100 Perforatio n of intestine 47998495 K63.1 bowel leak after surgeryreq uiring second surgery and NG/NJ tube (now removed)mo nitor cbc and ss of infections urgical f/up Bacteremia 2437118 R78.8 1 dt perforatio ncompleted rocephen and flagylmoni tor cbc and ss of infection Clostridio ides difficile infection 090823866 A04.72 dc summary note states pt completed all antbxdc med list with po vanco listed and no end datecontin ue vanco po 125 mg q6h for now, will look into end datemonito r for loose stools Deep venou s thrombosis of lower extremity 516800476 I82.409 hep gtt, now on lovenoxmon itor bleeding Venous thrombosis 781801 003 I82.90 hep gtt, now on lovenoxmon itor bleeding Small sahara l obstruction 935535723 K56.609 monitor bowel function Constipation 65306679 K5 9.00 at risk dt multiple bowel surgeriesm onitor bowel functionco ntinue bowel regimenadd miralax daily Essential hypertension 72789690 I10 carrying dxlisinopr il 10 mg dailymonit or bp and labs [id number] Ortega Delatorre MD [facility] [address] [place] [address] 03/19/2024 10:42:39 03/21/2024 08:27:28 Pneumoperitoneum 64167043 K66.8 see HPIcomplic ated hospitaliz ation with recurrent repeat surgical interventi onsfollow recs and update surgery with concernsmo nitor need to repeat imaging Hernia of anterior abdominal wall 591273671 K43.9 see HPI and abovenow s/p repeat repairmoni tor site Perforatio n of intestine 82255223 K63.1 see HPI with repeat surgical interventi onsmonitor vital and repeat cbcupdate surgery with concerns Bacteremia 6961162 R78.8 1 Sepsis covered with rocephin and flagyl, then developed c diff colitis started on vanco PO now completed per notehoweve r - Vanco PO in d/c med list, continued at this timefollow cbc Clostridio ides difficile infection 854834255 A04.72 discharged on PO vancoconti nued at this timereques t info for stop date Deep venou s thrombosis of lower extremity 413097429 I82.409 hep gtt, now on lovenoxmon itor bleeding Venous thrombosis 482356 003 I82.491 UL positive for LLE peroneal vein and RUE subclavian /axillary DVT covered with lovenox Constipation 54816768 K5 9.09 bowel protocolmo nitor for effect and need to titrate Essential hypertension 32995451 I10 lisinopril 10 mg qdmonitor bp and need to titrate [id number] [place] [address] 03/23/2024 11:33:18 03/26/2024 15:16:39 Acute retention of urine 199278806 R33.8 voiding trial at facility 03/26 in [facility] protocoldi scussed with nursing Pneumoperitoneum 2978663 6 K66.8 see HPIcomplic ated hospitaliz ation with recurrent repeat surgical interventi onsupdated surgery on concern for infection at incision sitefollow recs Clostridio ides difficile infection 775084263 A04.72 discharged on PO vancoconti nued on arrivalreq uest ID note for stop datewill empiricall y stop next week if remains symptomati c [id number] JIA DAVALOS, [place] [address] 03/27/2024 14:34:38 03/28/2024 15:48:38 Clostridioides difficile infection 477128756 A04.72 continue vancowait for ID recs for stop datechange all bowel meds to prn instead of scheduled Constipation 03318661 K5 9.09 at risk dt multiple bowel surgeriesm onitor bowel functionno w with diarrheawi ll change all bowel meds to prn Retention of urine 82235 4002 R33.9 started voiding trial on mondoing wellcontin ue to bladder scan per nursing protocol [id number] [place] [address] 03/28/2024 13:54:31 03/29/2024 15:16:54 Surgical incision wound of skin 2551401363 00 R23.8 s/p EMILY drains pt states [...] ID Guarantor Name 03/19/2024 1 MEDICARE B-[place]: [employer] Elliot Coombs [id number] Elliot Coombs 03/19/2024 1 *SELF PAY* Jarrett Coombs Notes Date Note Type Note Provider Name and Address Organization Details Recorded Time 03/17/2024 text/html Pt is a 68 yo male being seen for initial intake visit. Pt had a very long and complicated hospital course from 01/25/24-03/16/24 [place] [facility] He had multiple trips to the OR [...] large ventral hernia. JIA DAVALOS NP-C [address], [address], [place], [address], [facility] [employer] 03/17/2024 08:00:08 03/19/2024 text/html Patient is a [...] with thin liquids Ortega Delatorre MD [address], [address], [place], [address], [facility] 03/19/2024 11:06:38 03/23/2024 text/html Patient is [...] surgery for review Ortega Delatorre MD [address], [address], [place], [address], [facility] 03/23/2024 11:38:06 03/27/2024 text/html Patient is [...] c dif with po vanco from the [facility]. The plan was to stop vanco this week if dirrhea has resolved as there was no end date listed on dc summary. Pt reports diarrhea and constipation is his baseline. JIA DAVALOS NP-Anish [address], [address], [place], [address], [facility] 03/28/2024 09:47:28 03/28/2024 text/html ROS as [...] any tenderness or pain. TAVARES GIL [address], [address], [place], [address], [facility] 03/28/2024 20:16:36
== END 2025-01-16 11:42 | disposition home or self-care (01) ==
LOC: HO.HMCFMS 11:00
PROVIDERS: PCP Student in an Organized Health Care Education/Training Program; Visit Provider Student in an Organized Health Care Education/Training Program
DX: I82.409 Acute embolism and thrombosis of unspecified deep veins of unspecified lower extremity (principal); Z87.442 Personal history of urinary calculi; Z98.890 Other specified postprocedural states; E78.5 Hyperlipidemia, unspecified; R82.71 Bacteriuria

== ENCOUNTER → 2025-01-16 11:00 | Outpatient (BNVA) | payer MEDICARE, MEDICAID, SELFPAY | PROVIDERS: PCP Student in an Organized Health Care Education/Training Program; Visit Provider Student in an Organized Health Care Education/Training Program | DX: E78.5 Hyperlipidemia, unspecified (principal); R82.71 Bacteriuria; Z86.718 Personal history of other venous thrombosis and embolism; Z87.440 Personal history of urinary (tract) infections; Z87.442 Personal history of urinary calculi | CPT/HCPCS: 99212 ==